=== PATIENT | female | born 2000 | race Caucasian/White ===

== ENCOUNTER 2019-09-08 16:45 | Emergency (ER) | payer OTHER ==
[2019-09-08 16:56] VITALS: RESP 20; TEMP 98.1
--- NOTE | 2019-09-08 17:25 | ED ---
Upper Extremity HPI - General Chief Complaint: Extremity Injury, Upper Stated Complaint: IHS - lt hand/wrist injury Time Seen by Provider: 09/08/19 17:01 Source: patient Mode of arrival: ambulatory Limitations: no limitations - History of Present Illness Initial Comments: Patient is a 19-year-old female presenting to the emergency Department with complaints of an injury to her left wrist. Patient states she was at work this morning when she hit her left wrist on the corner of a metal counter. She states she had pain and bruising to the area. She did go home and take Tylenol and ice the area but is still having discomfort. She denies any previous injuries or surgeries to her left wrist or left extremity. She has no other complaints at this time. Upon arrival to the ER, her vital signs are stable. - Related Data Home Medications Medication Instructions Recorded Confirmed No Known Home Medications 09/08/19 09/08/19 Allergies Allergy/AdvReac Type Severity Reaction Status Date / Time Penicillins Allergy Swelling Verified 09/08/19 17:54 Review of Systems ROS Statement: Those systems with pertinent positive or pertinent negative responses have been documented in the HPI. ROS Other: All systems not noted in ROS Statement are negative. Past Medical History Past Medical History: No Reported History History of Any Multi-Drug Resistant Organisms: None Reported Past Surgical History: No Surgical Hx Reported Past Psychological History: No Psychological Hx Reported Smoking Status: Never smoker Past Alcohol Use History: None Reported Past Drug Use History: None Reported General Exam - General Exam Comments Initial Comments: GENERAL: Well-appearing, well-nourished and in no acute distress. HEAD: Atraumatic, normocephalic. EYES: Pupils equal round and reactive to light, extraocular movements intact, sclera anicteric, conjunctiva are normal. ENT: Moist mucous membranes. NECK: Normal range of motion, supple without lymphadenopathy or JVD. LUNGS: Breath sounds clear to auscultation bilaterally and equal. No wheezes rales or rhonchi. HEART: Regular rate and rhythm without murmurs, rubs or gallops. ABDOMEN: Soft, nontender, normoactive bowel sounds. No guarding, no rebound. No masses appreciated. : Deferred EXTREMITIES: Patient has mild bruising to the base of the left thumb consistent with a contusion injury. She has no swelling of the left wrist or left forearm. She does have full range of motion of the left wrist with pain at the end range. She is neurovascular intact. There is no deformity seen. SKIN: Warm, Dry, normal turgor, no rashes or lesions noted. Limitations: no limitations Course Vital Signs 09/08/19 09/08/19 16:54 18:25 Temperature 98.1 F Pulse Rate 91 80 Respiratory 20 20 Rate Blood Pressure 156/83 140/96 O2 Sat by Pulse 99 99 Oximetry Medical Decision Making - Medical Decision Making Patient is a 19-year-old female presenting with a left wrist injury that she did at work today. X-rays reveal no acute fractures dislocations. Discussed with patient is most likely a contusion to the first metacarpal. She will continue to ice as well as take Tylenol as needed for pain. She is stable for discharge. Disposition Clinical Impression: Contusion of left wrist Disposition: HOME SELF-CARE Condition: Stable Instructions (If sedation given, give patient instructions): Wrist Injury (ED) Additional Instructions: Please return to the Emergency Department if symptoms worsen or any other concerns. Continue with ice, Tylenol or Motrin for discomfort. Is patient prescribed a controlled substance at d/c from ED?: No Referrals: None,Stated [Primary Care Provider] - 1-2 days
--- NOTE | 2019-09-08 17:50 | XR ---
EXAMINATION TYPE: XR wrist complete LT DATE OF EXAM: 09/08/2019 CLINICAL HISTORY: pain TECHNIQUE: 4 images of the left wrist are obtained. COMPARISON: None. FINDINGS: There is no acute fracture/dislocation evident. The joint spaces appear within normal adames its. The overlying soft tissue appears unremarkable. IMPRESSION: There is no acute fracture or dislocation seen. ICD 10 NO FRACTURE, INITIAL EVALUATION
[2019-09-08 18:26] VITALS: BP 140/96; PULSE 80
== END 2019-09-08 18:26 | disposition home or self-care (01) ==
LOC: EC 16:45
DX: S60.212A Contusion of left wrist, initial encounter (principal); Z88.0 Allergy status to penicillin; W22.8XXA Striking against or struck by other objects, initial encounter; Y92.69 Other specified industrial and construction area as the place of occurrence of the external cause; Y99.0 Civilian activity done for income or pay
CPT/HCPCS: 99283

== ENCOUNTER → 2019-09-16 | Outpatient (CLI) | payer OTHER ==
--- NOTE | 2019-09-16 09:54 | XR ---
EXAMINATION TYPE: XR wrist complete LT, XR hand complete LT DATE OF EXAM: 09/16/2019 CLINICAL HISTORY: Lateral pain after hitting injury. TECHNIQUE: Frontal, lateral and oblique images of the left hand and wrist are obtained. Additional f ourth scaphoid view left wrist. COMPARISON: None FINDINGS: There is no acute fracture/dislocation evident in the left wrist. The joint spaces in the left wrist appear within normal limits. The overlying soft tissue appears unremarkable. Images of the left hand show no acute fracture or dislocation. Joint spaces are preserved. Overlying soft tissue is unremarkable. IMPRESSION: There is no acute fracture or dislocation in the left hand or wrist.
== END | disposition home or self-care (01) ==
LOC: RADXRMAIN 09:05
PROVIDERS: ATTEND Emergency Medicine
DX: S60.222D Contusion of left hand, subsequent encounter (principal); S60.212D Contusion of left wrist, subsequent encounter

== ENCOUNTER 2020-06-28 18:39 | Emergency (ER) | payer OTHER ==
[2020-06-28 18:58] VITALS: RESP 18; TEMP 98.3
[2020-06-28] MEDS ORDERED: SODIUM CHLORIDE 0.9% 1,000 ML IV ONE (19:17)
[2020-06-28 19:40] LABS: Appearance,Urine Clear (Clear); Basophils # (A) 0.1 k/uL (0-0.2); Basophils % (A) 1 %; Bilirubin,Urine Negative (Negative); Blood,Urine Negative (Negative); Color,Urine Colorless; Eosinophils # (A) 0.1 k/uL (0-0.7); Eosinophils % (A) 1 %; Glucose,Urine (UA) Negative (Negative); HCT 44.5 % (34.0-46.0); HGB 15.6 gm/dL (11.4-16.0); Ketones,Urine Negative (Negative); Leukocyte Esterase,Urine Negative (Negative); Lymphocytes % (A) 23 %; MCH 30.9 pg (25.0-35.0); MCV 88.3 fL (80.0-100.0); Mean Platelet Volume 6.7; Monocytes # (A) 0.5 k/uL (0-1.0); Monocytes % (A) 6 %; Neutrophils % (A) 69 %; Nitrite,Urine Negative (Negative); Platelet Count 312 k/uL (150-450); Protein,Urine Negative (Negative); RBC 5.03 m/uL (3.80-5.40); RDW 12.9 % (11.5-15.5); Specific Gravity,Urine 1.007 (1.001-1.035); Urobilinogen,Urine <2.0 mg/dL (<2.0); WBC 8.8 k/uL (3.8-10.6)
--- NOTE | 2020-06-28 19:48 | ED ---
Abdominal Pain HPI - General Chief Complaint: Abdominal Pain Stated Complaint: possibly 6 weeks , cramping Time Seen by Provider: 06/28/20 19:05 Source: patient Mode of arrival: ambulatory Limitations: no limitations - History of Present Illness Initial Comments: 20 year-old female patient presents to the emergency department for evaluation of lower abdominal cramping. Patient did have a positive home test. Last period started on 05/14/20. She is . States cramping started a couple of days ago. She denies any abnormal vaginal bleeding or discharge. States she is having suprapubic cramping she does have some low back pain as well. Denies hematuria, dysuria, urinary frequency, urinary urgency. She states she has been having nausea but denies any vomiting. She does have an appointment with Dr. Blair in 2 weeks. Has not had any ultrasound or evaluation up to this point. Denies history of abdominal surgery. He denies constipation or diarrhea. Patient denies any recent rash, fever, chills, cough, shortness of breath, chest pain, numbness, tingling, dizziness, weakness, headache, visual changes, or any other complaints. - Related Data Home Medications Medication Instructions Recorded Confirmed Euk-Rvsp-Bcjsp Acid 1 cap PO DAILY 06/28/20 06/28/20 [-U Capsule (formulary)] Allergies Allergy/AdvReac Type Severity Reaction Status Date / Time Penicillins Allergy Swelling Verified 06/28/20 20:34 Review of Systems ROS Statement: Those systems with pertinent positive or pertinent negative responses have been documented in the HPI. ROS Other: All systems not noted in ROS Statement are negative. Past Medical History Past Medical History: No Reported History History of Any Multi-Drug Resistant Organisms: None Reported Past Surgical History: No Surgical Hx Reported Past Psychological History: No Psychological Hx Reported Smoking Status: Never smoker Past Alcohol Use History: None Reported Past Drug Use History: None Reported General Exam Limitations: no limitations General appearance: alert, in no apparent distress, other (This is a well- developed, well-nourished adult female patient in no acute distress. Vital signs upon presentation are temperature 98.3F, pulse 79, respirations 18, blood pressure 135/76, pulse ox 100% on room air.) Eye exam: Present: normal appearance, PERRL, EOMI. Absent: scleral icterus, conjunctival injection, periorbital swelling ENT exam: Present: normal exam, normal oropharynx, mucous membranes moist Respiratory exam: Present: normal lung sounds bilaterally. Absent: respiratory distress, wheezes, rales, rhonchi, stridor Cardiovascular Exam: Present: regular rate, normal rhythm, normal heart sounds. Absent: systolic murmur, diastolic murmur, rubs, gallop, clicks GI/Abdominal exam: Present: soft, tenderness (suprapubic tenderness), normal bowel sounds. Absent: distended, guarding, rebound, rigid Neurological exam: Present: alert, oriented X3, CN II-XII intact Psychiatric exam: Present: normal affect, normal mood Skin exam: Present: warm, dry, intact, normal color. Absent: rash Course Vital Signs 06/28/20 06/28/20 18:54 21:31 Temperature 98.3 F Pulse Rate 79 72 Respiratory 18 18 Rate Blood Pressure 135/76 129/75 O2 Sat by Pulse 100 98 Oximetry Medical Decision Making - Medical Decision Making 20-year-old female patient presents to the emergency department today for evaluation of suprapubic abdominal cramping and low back pain. Last period 6 weeks 4 days ago. Positive home test with a faint line on 06/08/20, darker line a few days later. Denies vaginal bleeding or discharge. Physical examination reveals mild suprapubic tenderness. Labs reviewed and did reveal hCG levels of 3900. Ultrasound obtained and showed a possible intrauterine gestational sac measuring 7 mm. No adnexal mass or abnormality noted. I did discuss findings and results with the patient. We did discuss possible early versus threatened miscarriage versus possibility of early ectopic . We discussed signs and symptoms of each. She is instructed to have repeat hCG level drawn in 2 days she is given a slip for this. She is instructed to call her BENEFITS CONSULTANT's office in the morning for further instructions. Return parameters were discussed in detail. She verbalizes understanding and agrees with this plan. - Lab Data Result diagrams: 06/28/20 19:30 06/28/20 19:30 Lab Results 06/28/20 06/28/20 06/28/20 Range/Units 19:20 19:30 19:30 WBC 8.8 (3.8-10.6) k/uL RBC 5.03 (3.80-5.40) m/uL Hgb 15.6 (11.4-16.0) gm/dL Hct 44.5 (34.0-46.0) % MCV 88.3 (80.0-100.0) fL MCH 30.9 (25.0-35.0) pg MCHC 35.0 (31.0-37.0) g/dL RDW 12.9 (11.5-15.5) % Plt Count 312 (150-450) k/uL MPV 6.7 Neutrophils % 69 % Lymphocytes % 23 % Monocytes % 6 % Eosinophils % 1 % Basophils % 1 % Neutrophils # 6.0 (1.3-7.7) k/uL Lymphocytes # 2.0 (1.0-4.8) k/uL Monocytes # 0.5 (0-1.0) k/uL Eosinophils # 0.1 (0-0.7) k/uL Basophils # 0.1 (0-0.2) k/uL Sodium (137-145) mmol/L Potassium (3.5-5.1) mmol/L Chloride (98-107) mmol/L Carbon Dioxide (22-30) mmol/L Anion Gap mmol/L BUN (7-17) mg/dL Creatinine (0.52-1.04) mg/dL Est GFR (CKD-EPI)AfAm (>60 ml/min/1.73 sqM) Est GFR (CKD-EPI)NonAf (>60 ml/min/1.73 sqM) Glucose (74-99) mg/dL Calcium (8.4-10.2) mg/dL Total Bilirubin (0.2-1.3) mg/dL AST (14-36) U/L ALT (4-34) U/L Alkaline Phosphatase (38-126) U/L Total Protein (6.3-8.2) g/dL Albumin (3.5-5.0) g/dL Lipase (23-300) U/L HCG, Quant mIU/mL Urine Color Colorless Urine Appearance Clear (Clear) Urine pH 7.0 (5.0-8.0) Ur Specific [place] 1.007 (1.001-1.035) Urine Protein Negative (Negative) Urine Glucose (UA) Negative (Negative) Urine Ketones Negative (Negative) Urine Blood Negative (Negative) Urine Nitrite Negative (Negative) Urine Bilirubin Negative (Negative) Urine Urobilinogen <2.0 (<2.0) mg/dL Ur Leukocyte Esterase Negative (Negative) Blood Type A Positive Blood Type Recheck No Previous Record Bld Type Recheck Status [facility] ONLY 06/28/20 Range/Units 19:30 WBC (3.8-10.6) k/uL RBC (3.80-5.40) m/uL Hgb (11.4-16.0) gm/dL Hct (34.0-46.0) % MCV (80.0-100.0) fL MCH (25.0-35.0) pg MCHC (31.0-37.0) g/dL RDW (11.5-15.5) % Plt Count (150-450) k/uL MPV Neutrophils % % Lymphocytes % % Monocytes % % Eosinophils % % Basophils % % Neutrophils # (1.3-7.7) k/uL Lymphocytes # (1.0-4.8) k/uL Monocytes # (0-1.0) k/uL Eosinophils # (0-0.7) k/uL Basophils # (0-0.2) k/uL Sodium 138 (137-145) mmol/L Potassium 3.9 (3.5-5.1) mmol/L Chloride 105 (98-107) mmol/L Carbon Dioxide 23 (22-30) mmol/L Anion Gap 10 mmol/L BUN 11 (7-17) mg/dL Creatinine 0.50 L (0.52-1.04) mg/dL Est GFR (CKD-EPI)AfAm >90 (>60 ml/min/1.73 sqM) Est GFR (CKD-EPI)NonAf >90 (>60 ml/min/1.73 sqM) Glucose 108 H (74-99) mg/dL Calcium 10.0 (8.4-10.2) mg/dL Total Bilirubin 0.4 (0.2-1.3) mg/dL AST 24 (14-36) U/L ALT 22 (4-34) U/L Alkaline Phosphatase 58 (38-126) U/L Total Protein 8.3 H (6.3-8.2) g/dL Albumin 4.8 (3.5-5.0) g/dL Lipase 60 (23-300) U/L HCG, Quant 3916.2 mIU/mL Urine Color Urine Appearance (Clear) Urine pH (5.0-8.0) Ur Specific [place] (1.001-1.035) Urine Protein (Negative) Urine Glucose (UA) (Negative) Urine Ketones (Negative) Urine Blood (Negative) Urine Nitrite (Negative) Urine Bilirubin (Negative) Urine Urobilinogen (<2.0) mg/dL Ur Leukocyte Esterase (Negative) Blood Type Blood Type Recheck Bld Type Recheck Status - Radiology Data Radiology results: report reviewed, image reviewed ultrasound was obtained. Report is reviewed in its entirety. Impression by Dr. Solis shows possible early intrauterine gestational sac measures 7 mm. No adnexal masses. Small amount of free fluid in the cul-de-sac. Disposition Clinical Impression: Abdominal pain in Disposition: HOME SELF-CARE Condition: Good Instructions (If sedation given, give patient instructions): Threatened Miscarriage (ED), Abdominal Pain in (ED) Additional Instructions: Have repeat hCG ( hormone) redrawn in 2 days, please have it redrawn at this hospital for comparison purposes. Call Dr. Blair's office first thing in the morning for further instructions. Return to the emergency department immediately if her pain worsens, he developed vaginal bleeding, or given any other concerns. Return for any other new, worsening, or concerning symptoms. Is patient prescribed a controlled substance at d/c from ED?: No Referrals: None,Stated [Primary Care Provider] - 1-2 days Time of Disposition: 21:19
[2020-06-28 19:50] LABS: ALT 22 U/L (4-34); AST 24 U/L (14-36); African American GFR (CKD) >90 (>60 ml/min/1.73 sqM); Albumin 4.8 g/dL (3.5-5.0); Alkaline Phosphatase 58 U/L (38-126); Anion Gap 10 mmol/L; Blood Urea Nitrogen 11 mg/dL (7-17); Carbon Dioxide 23 mmol/L (22-30); Chloride 105 mmol/L (98-107); Glucose 108 mg/dL (74-99); Lipase 60 U/L (23-300); Non-African American GFR(CKD) >90 (>60 ml/min/1.73 sqM); Potassium 3.9 mmol/L (3.5-5.1); Sodium 138 mmol/L (137-145); Total Bilirubin 0.4 mg/dL (0.2-1.3); Total Protein 8.3 g/dL (6.3-8.2)
[2020-06-28 20:06] LABS: HCG,Quantitative Serum 3916.2 mIU/mL
--- NOTE | 2020-06-28 20:44 | US ---
EXAMINATION TYPE: Transabdominal DATE OF EXAM: 06/28/2020 8:11 PM COMPARISON: NONE CLINICAL HISTORY: Suprapubic pain; 6 weeks pg. Suprapubic pain x 2 days. . EXAM PERFORMED: Transvaginal (TV) and Transabdominal (TA) EXAM MEASUREMENTS: GESTATIONAL AGE / DATING Physician Established: Not yet established. Dates by LMP: (6 weeks/4 days) EDC: 02/17/2021 Dates by First Scan: This is first scan. Dates by Current Scan for: Gestational sac measures out of range. MATERNAL ANATOMY Uterus: 8.0 x 5.5 x 4.9 cm. Retroverted. Cervix appears to be anteverted. Right Ovary: 3.8 x 2.6 x 2.5 cm. Anechoic area seen measuring 1.1 x 1.1 x 0.9 cm. Left Ovary: 4.2 x 2.0 x 2.6 cm. Appears slightly enlarged. Post CDS / Adnexa: Fluid seen in CDS measuring 1.4 x 1.9 x 0.3 cm. Presence of free fluid: Yes, in CDS. Presence of corpus luteal cyst: Possible within right ovary-Anechoic area seen measuring 1.1 x 1.1 x 0.9 cm.. Presence of subchorionic bleed: No GESTATION / SURVEY MSD: 0.73 cm. (OOR) IUP: Possible gestational sac only seen at this time. Date of LMP: 05/13/2020 Beta HcG (if available): 3,916.2 IMPRESSION: Possible early intrauterine gestational sac that measures 7 mm. No adnexal mass. Small amount of free fluid in the cul-de-sac.
[2020-06-28 21:32] VITALS: BP 129/75; PULSE 72
== END 2020-06-28 21:32 | disposition home or self-care (01) ==
LOC: EC 18:39
DX: O99.891 Other specified diseases and conditions complicating pregnancy (principal); R10.30 Lower abdominal pain, unspecified; M54.5 Low back pain; Z3A.01 Less than 8 weeks gestation of pregnancy; Z88.0 Allergy status to penicillin; Z79.899 Other long term (current) drug therapy
CPT/HCPCS: 36415; 76801; 76817; 80053; 81003; 83690; 84702; 85025; 86900; 86901; 96360; 96361; 99284

== ENCOUNTER → 2020-07-02 | Outpatient (CLI) | payer OTHER | END | disposition home or self-care (01) | LOC: LABWHC1 13:29 | PROVIDERS: ATTEND Obstetrics & Gynecology | DX: O20.0 Threatened abortion (principal) | CPT/HCPCS: 36415; 84702 ==

== ENCOUNTER 2020-07-03 19:21 | Emergency (ER) | payer OTHER ==
[2020-07-03 19:28] VITALS: RESP 18
[2020-07-03 20:37] LABS: Basophils % (A) 0 %; Eosinophils # (A) 0.1 k/uL (0-0.7); Eosinophils % (A) 1 %; HCT 45.1 % (34.0-46.0); HGB 15.9 gm/dL (11.4-16.0); Lymphocytes # (A) 2.4 k/uL (1.0-4.8); Lymphocytes % (A) 28 %; MCH 31.3 pg (25.0-35.0); MCHC 35.3 g/dL (31.0-37.0); MCV 88.6 fL (80.0-100.0); Mean Platelet Volume 6.6; Monocytes # (A) 0.5 k/uL (0-1.0); Monocytes % (A) 5 %; Neutrophils # (A) 5.7 k/uL (1.3-7.7); Neutrophils % (A) 65 %; Platelet Count 300 k/uL (150-450); RBC 5.09 m/uL (3.80-5.40); RDW 12.9 % (11.5-15.5); WBC 8.8 k/uL (3.8-10.6)
[2020-07-03 20:41] LABS: Appearance,Urine Clear (Clear); Bacteria,Urine Rare /hpf; Bilirubin,Urine Negative (Negative); Blood,Urine Trace (Negative); Color,Urine Yellow; Glucose,Urine (UA) Negative (Negative); Ketones,Urine Negative (Negative); Leukocyte Esterase,Urine Negative (Negative); Mucus,Urine Rare /hpf; Nitrite,Urine Negative (Negative); Protein,Urine Trace (Negative); RBC,Urine 2 /hpf (0-5); Specific Gravity,Urine 1.035 (1.001-1.035); Squamous Epithelial Cell,Urine 1 /hpf (0-4); WBC,Urine <1 /hpf (0-5)
[2020-07-03 20:46] LABS: ALT 28 U/L (4-34); AST 30 U/L (14-36); African American GFR (CKD) >90 (>60 ml/min/1.73 sqM); Albumin 4.7 g/dL (3.5-5.0); Alkaline Phosphatase 60 U/L (38-126); Anion Gap 11 mmol/L; Blood Urea Nitrogen 13 mg/dL (7-17); Calcium 9.7 mg/dL (8.4-10.2); Carbon Dioxide 23 mmol/L (22-30); Chloride 104 mmol/L (98-107); Glucose 107 mg/dL (74-99); Non-African American GFR(CKD) >90 (>60 ml/min/1.73 sqM); Sodium 138 mmol/L (137-145); Total Bilirubin 0.4 mg/dL (0.2-1.3); Total Protein 8.2 g/dL (6.3-8.2)
--- NOTE | 2020-07-03 21:00 | ED ---
Female Urogenital HPI - General Source: patient Mode of arrival: ambulatory Limitations: no limitations <Anjelica Carrillo - Last Filed: 07/03/20 20:59> <Shan Gaines - Last Filed: 07/03/20 21:29> - General Chief complaint: Vaginal Bleeding Stated complaint: Poss miscarriage - History of Present Illness Initial comments: 20-year-old female who is presents to the emergency department with reported vaginal bleeding. Patient was seen in the emergency department for vaginal cramping on June 28. She had multiple home tests which were positive. Last menstrual cycle was May 14 and she was approximately 6 weeks at that time. She has laboratory studies conducted which demonstrated that her beta Quant was 3916. Ultrasound demonstrated a possible early intrauterine gestational sac measuring 7 mm. Patient had repeat laboratory studies drawn on Thursday however this had to be done at [facility]. She reports that her beta Quant fell a small amount to 3900. She spoke with Dr. Lombardo who sent her to [facility] yesterday and it radha to 5655. She is supposed to see him in office tomorrow at 9 AM. The patient began having vaginal bleeding today which is something she never had before. Reports that she had increased cramping. She called her OB who recommended that she come in to the emergency room for evaluation. Denies any changes in her urination. No abnormal vaginal discharge or concern for sexually transmitted infections. No fevers or chills. States that she's been wearing the same pad all day. No other alleviating, precipitating or modifying factors (Anjelica Carrillo) - Related Data Home Medications Medication Instructions Recorded Confirmed Gto-Nmwn-Twszx Acid 1 cap PO DAILY 06/28/20 07/03/20 [-U Capsule (formulary)] Allergies Allergy/AdvReac Type Severity Reaction Status Date / Time Penicillins Allergy Swelling Verified 07/03/20 20:06 Review of Systems ROS Other: All systems not noted in ROS Statement are negative. <Anjelica Carrillo - Last Filed: 07/03/20 20:59> ROS Other: All systems not noted in ROS Statement are negative. <Shan Gaines - Last Filed: 07/03/20 21:29> ROS Statement: Those systems with pertinent positive or pertinent negative responses have been documented in the HPI. Past Medical History Past Medical History: No Reported History History of Any Multi-Drug Resistant Organisms: None Reported Past Surgical History: No Surgical Hx Reported Past Psychological History: No Psychological Hx Reported Smoking Status: Never smoker Past Alcohol Use History: None Reported Past Drug Use History: None Reported <Anjelica Carrillo - Last Filed: 07/03/20 20:59> General Exam Limitations: no limitations General appearance: alert, in no apparent distress Head exam: Present: atraumatic, normocephalic, normal inspection Eye exam: Present: normal appearance, PERRL, EOMI. Absent: scleral icterus, conjunctival injection, periorbital swelling ENT exam: Present: normal exam, mucous membranes moist Neck exam: Present: normal inspection. Absent: tenderness, meningismus, lymphadenopathy Respiratory exam: Present: normal lung sounds bilaterally. Absent: respiratory distress, wheezes, rales, rhonchi, stridor Cardiovascular Exam: Present: regular rate, normal rhythm, normal heart sounds. Absent: systolic murmur, diastolic murmur, rubs, gallop, clicks GI/Abdominal exam: Present: soft, normal bowel sounds. Absent: distended, tenderness, guarding, rebound, rigid Extremities exam: Present: normal inspection, full ROM, normal capillary refill. Absent: tenderness, pedal edema, joint swelling, calf tenderness Back exam: Present: normal inspection Neurological exam: Present: alert, oriented X3, CN II-XII intact Psychiatric exam: Present: normal affect, normal mood Skin exam: Present: warm, dry, intact, normal color. Absent: rash <EmileenderAnmolAnjelica A - Last Filed: 07/03/20 20:59> Course Vital Signs 07/03/20 19:25 Temperature 98.1 F Pulse Rate 77 Respiratory 18 Rate Blood Pressure 138/70 O2 Sat by Pulse 100 Oximetry Medical Decision Making - Lab Data Result diagrams: 07/03/20 20:22 07/03/20 20:22 <EmileenderAnjelica A - Last Filed: 07/03/20 20:59> - Lab Data Result diagrams: 07/03/20 20:22 07/03/20 20:22 <Shan Gaines - Last Filed: 07/03/20 21:29> - Medical Decision Making Upon arrival patient was placed into room 25. A thorough history and physical exam was performed. Patient has slight tenderness to the left lower quadrant. Recommend laboratory studies and ultrasound. Laboratory studies are pending at this time. Patient is a positive. US pending. Patient will be signed out to Dr. Gaines (Anjelica Carrillo) Patient care is signed out to me by previous shift physician Dr. French. Plan was to follow-up with ultrasound. Ultrasound shows possible intrauterine gestational sac. Follow-up is recommended 2 weeks also complex cyst in the right ovary. Patient notified of results. Patient discharged she is an appointment with OB tomorrow. (Shan Gaines) - Lab Data Lab Results 07/03/20 07/03/20 07/03/20 Range/Units 20:22 20:22 20:22 WBC 8.8 (3.8-10.6) k/uL RBC 5.09 (3.80-5.40) m/uL Hgb 15.9 (11.4-16.0) gm/dL Hct 45.1 (34.0-46.0) % MCV 88.6 (80.0-100.0) fL MCH 31.3 (25.0-35.0) pg MCHC 35.3 (31.0-37.0) g/dL RDW 12.9 (11.5-15.5) % Plt Count 300 (150-450) k/uL MPV 6.6 Neutrophils % 65 % Lymphocytes % 28 % Monocytes % 5 % Eosinophils % 1 % Basophils % 0 % Neutrophils # 5.7 (1.3-7.7) k/uL Lymphocytes # 2.4 (1.0-4.8) k/uL Monocytes # 0.5 (0-1.0) k/uL Eosinophils # 0.1 (0-0.7) k/uL Basophils # 0.0 (0-0.2) k/uL Sodium 138 (137-145) mmol/L Potassium 4.0 (3.5-5.1) mmol/L Chloride 104 (98-107) mmol/L Carbon Dioxide 23 (22-30) mmol/L Anion Gap 11 mmol/L BUN 13 (7-17) mg/dL Creatinine 0.48 L (0.52-1.04) mg/dL Est GFR (CKD-EPI)AfAm >90 (>60 ml/min/1.73 sqM) Est GFR (CKD-EPI)NonAf >90 (>60 ml/min/1.73 sqM) Glucose 107 H (74-99) mg/dL Calcium 9.7 (8.4-10.2) mg/dL Total Bilirubin 0.4 (0.2-1.3) mg/dL AST 30 (14-36) U/L ALT 28 (4-34) U/L Alkaline Phosphatase 60 (38-126) U/L Total Protein 8.2 (6.3-8.2) g/dL Albumin 4.7 (3.5-5.0) g/dL HCG, Quant 6182.5 mIU/mL Urine Color Yellow Urine Appearance Clear (Clear) Urine pH 6.0 (5.0-8.0) Ur Specific [place] 1.035 (1.001-1.035) Urine Protein Trace H (Negative) Urine Glucose (UA) Negative (Negative) Urine Ketones Negative (Negative) Urine Blood Trace H (Negative) Urine Nitrite Negative (Negative) Urine Bilirubin Negative (Negative) Urine Urobilinogen 2.0 (<2.0) mg/dL Ur Leukocyte Esterase Negative (Negative) Urine RBC 2 (0-5) /hpf Urine WBC <1 (0-5) /hpf Ur Squamous Epith Cells 1 (0-4) /hpf Urine Bacteria Rare H (None) /hpf Urine Mucus Rare H (None) /hpf Disposition <Anjelica Carrillo A - Last Filed: 07/03/20 20:59> Is patient prescribed a controlled substance at d/c from ED?: No Time of Disposition: 21:29 <Shan Gaines - Last Filed: 07/03/20 21:29> Clinical Impression: Pelvic pain Disposition: HOME SELF-CARE Instructions (If sedation given, give patient instructions): Threatened Miscarriage (ED) Referrals: Bryan Blair MD [STAFF PHYSICIAN] - 1-2 days
[2020-07-03 21:02] LABS: HCG,Quantitative Serum 6182.5 mIU/mL
--- NOTE | 2020-07-03 21:20 | US ---
EXAMINATION TYPE: Transabdominal DATE OF EXAM: 07/03/2020 9:07 PM COMPARISON: US CLINICAL HISTORY: , bleeding. Pain and bleeding x 4 hours. . EXAM PERFORMED: Transvaginal (TV) and Transabdominal (TA) EXAM MEASUREMENTS: GESTATIONAL AGE / DATING Physician Established: Not yet established. Dates by LMP: (7 weeks/2 days) EDC: 02/17/2021 Dates by First Scan: Measured OOR. Dates by Current Scan for: Possible gestational sac seen measures out of range. MATERNAL ANATOMY Uterus: Retroverted. 7.9 x 5.3 x 4.0 cm. Right Ovary: 2.9 x 2.3 x 2.5 cm. Hypoechoic/heterogeneous area with peripheral vascularity seen measu ring 1.2 x 1.1 x 1.1 cm. Anechoic area seen measuring 1.1 x 1.0 x 1.0 cm. Left Ovary: 3.6 x 1.8 x 2.0 cm. Post CDS / Adnexa: Minimal fluid seen in cul de sac measuring 0.8 x 0.9 x 0.4 cm. Presence of free fluid: yes, in cul de sac. Presence of corpus luteal cyst: Possible within right ovary as mentioned above: Hypoechoic/heterogene ous area with peripheral vascularity seen measuring 1.2 x 1.1 x 1.1 cm.. Presence of subchorionic bleed: Not seen. GESTATION / SURVEY MSD: 0.92 cm. (Measures out of range.) IUP: Possible gestational sac seen only at this time. Date of LMP: 05/13/2020 Beta HcG (if available): 6,182.5 IMPRESSION: Possible intrauterine early gestational sac. Follow-up exam recommended in 2 weeks to confirm a livin g fetus of clinically indicated. Complex cyst on the right ovary.
[2020-07-03 21:52] VITALS: BP 131/84; PULSE 99; TEMP 98.2
== END 2020-07-03 21:51 | disposition home or self-care (01) ==
LOC: EC 19:21
DX: R10.2 Pelvic and perineal pain (principal); Z88.0 Allergy status to penicillin
CPT/HCPCS: 36415; 76801; 76817; 80053; 81001; 84702; 85025; 99284

== ENCOUNTER → 2020-11-15 | Outpatient (CLI) | payer OTHER ==
--- NOTE | 2020-11-16 08:15 | US ---
EXAMINATION TYPE: Ultrasound OB <= 14 week fetus DATE OF EXAM: 11/15/2020 4:40 PM COMPARISON: NONE CLINICAL HISTORY: 20-year-old female Z36 Confirm dates. EXAM PERFORMED: Transabdominal (TA) FINDINGS: EXAM MEASUREMENTS: GESTATIONAL AGE / DATING Physician Established: (10 weeks/1 days) EDC: 06/12/2021 Dates by LMP: LMP unknown Dates by First Scan: No previous this is first scan Dates by Current Scan for: (10 weeks/4 days) EDC: 06/09/2021 MATERNAL ANATOMY Uterus: 12.2 x 5.4 x 8.3cm Right Ovary: 2.7 x 2.1 x 2.0cm Left Ovary: 3.2 x 1.7 x 2.7cm Post CDS / Adnexa: wnl Presence of free fluid: no Presence of corpus luteal cyst: not seen Presence of subchorionic bleed: no GESTATION / SURVEY CRL: 3.6cm (10 weeks/4 days) Yolk Sac (normal less than 6mm): not seen Heart Rate: 165 bpm Rhythm: Normal IUP: Viable IUP IMPRESSION: 1. Single live intrauterine with gestational size of 10 weeks 4 days by crown-rump length. This is concordant with physician established dates (10 weeks 1 day). 2. Complete survey recommended at 18-20 weeks.
== END | disposition home or self-care (01) ==
LOC: RADUSWWP 16:21
PROVIDERS: ATTEND Obstetrics & Gynecology
DX: Z34.91 Encounter for supervision of normal pregnancy, unspecified, first trimester (principal); Z3A.10 10 weeks gestation of pregnancy
CPT/HCPCS: 76801

== ENCOUNTER 2020-11-25 17:25 | Emergency (ER) | payer OTHER ==
[2020-11-25] MEDS ORDERED: ONDANSETRON 4 MG/2 ML VIAL IVP STA (17:41)
[2020-11-25] MEDS ORDERED: SODIUM CHLORIDE 0.9% 1,000 ML IV STA (17:41)
[2020-11-25 18:13] LABS: Basophils % (A) 0 %; Eosinophils # (A) 0.1 k/uL (0-0.7); Eosinophils % (A) 1 %; HCT 38.5 % (34.0-46.0); HGB 14.1 gm/dL (11.4-16.0); Hyperchromasia Slight; Lymphocytes % (A) 24 %; MCH 31.7 pg (25.0-35.0); MCHC 36.8 g/dL (31.0-37.0); MCV 86.2 fL (80.0-100.0); Mean Platelet Volume 6.9; Monocytes # (A) 0.4 k/uL (0-1.0); Monocytes % (A) 5 %; Neutrophils # (A) 5.8 k/uL (1.3-7.7); Neutrophils % (A) 69 %; Platelet Count 264 k/uL (150-450); RBC 4.46 m/uL (3.80-5.40); RDW 13.2 % (11.5-15.5); WBC 8.4 k/uL (3.8-10.6)
[2020-11-25 18:26] LABS: ALT 11 U/L (4-34); AST 18 U/L (14-36); African American GFR (CKD) >90 (>60 ml/min/1.73 sqM); Albumin 4.1 g/dL (3.5-5.0); Alkaline Phosphatase 65 U/L (38-126); Amylase 63 U/L (30-110); Anion Gap 10 mmol/L; Blood Urea Nitrogen 3 mg/dL (7-17); Calcium 9.1 mg/dL (8.4-10.2); Carbon Dioxide 18 mmol/L (22-30); Chloride 108 mmol/L (98-107); Glucose 91 mg/dL (74-99); Lipase 49 U/L (23-300); Non-African American GFR(CKD) >90 (>60 ml/min/1.73 sqM); Potassium 3.8 mmol/L (3.5-5.1); Sodium 136 mmol/L (137-145); Total Bilirubin 0.3 mg/dL (0.2-1.3); Total Protein 7.1 g/dL (6.3-8.2)
--- NOTE | 2020-11-25 18:38 | ED ---
General Adult HPI - General Chief complaint: Nausea/Vomiting/Diarrhea Stated complaint: , Dehydration Time Seen by Provider: 11/25/20 17:32 Source: patient, RN notes reviewed Mode of arrival: ambulatory Limitations: no limitations - History of Present Illness Initial comments: Patient is a 20-year-old female presents to emergency complaining of nausea for the past several weeks. She notes that she is 12 weeks and has been feeling ill since week 5. She notes that she doesn't drink nearly as much water she probably should patient was last 3 days she's felt more dehydrated and weak than usual. She denied any other issues or complaints. She noted that her has been uncomplicated so far and she follows up with her [facility]OT[facility] in a week and a half. She notes that she came in to get hydration therapy. She denied any chest pain shortness breath headache diarrhea constipation fever fatigue chills - Related Data Home Medications Medication Instructions Recorded Confirmed Ondansetron [Zofran] 4 mg PO Q6H PRN 11/25/20 11/25/20 Allergies Allergy/AdvReac Type Severity Reaction Status Date / Time Penicillins Allergy Swelling Verified 11/25/20 18:22 Review of Systems ROS Statement: Those systems with pertinent positive or pertinent negative responses have been documented in the HPI. ROS Other: All systems not noted in ROS Statement are negative. Past Medical History Past Medical History: No Reported History History of Any Multi-Drug Resistant Organisms: None Reported Past Surgical History: No Surgical Hx Reported Past Psychological History: No Psychological Hx Reported Smoking Status: Never smoker Past Alcohol Use History: None Reported Past Drug Use History: None Reported General Exam Limitations: no limitations General appearance: alert, in no apparent distress Head exam: Present: atraumatic, normocephalic, normal inspection Eye exam: Present: normal appearance, PERRL, EOMI. Absent: scleral icterus, conjunctival injection, periorbital swelling Neck exam: Present: normal inspection Respiratory exam: Present: normal lung sounds bilaterally. Absent: respiratory distress, wheezes, rales, rhonchi, stridor Cardiovascular Exam: Present: regular rate, normal rhythm, normal heart sounds. Absent: systolic murmur, diastolic murmur, rubs, gallop, clicks GI/Abdominal exam: Present: soft, normal bowel sounds. Absent: distended, tenderness, guarding, rebound, rigid Extremities exam: Present: normal inspection, full ROM, normal capillary refill. Absent: tenderness, pedal edema, joint swelling, calf tenderness Neurological exam: Present: alert, oriented X3 Psychiatric exam: Present: normal affect, normal mood Skin exam: Present: warm, dry, intact, normal color. Absent: rash Course Vital Signs 11/25/20 17:27 Temperature 98.2 F Pulse Rate 77 Respiratory 16 Rate Blood Pressure 133/82 O2 Sat by Pulse 100 Oximetry Medical Decision Making - Medical Decision Making 20-year-old female complaining of dehydration, she is 12 weeks . Basic labs, 4 mg Zofran, 1 L normal saline ordered. Upon reevaluation patient states that she feels better already since fluids were started. Labs unremarkable. Case discussed with Dr. Almanza, patient can discharge home with follow-up to [facility]. - Lab Data Result diagrams: 11/25/20 17:52 11/25/20 17:52 Lab Results 11/25/20 11/25/20 11/25/20 Range/Units 17:52 17:52 17:52 WBC 8.4 (3.8-10.6) k/uL RBC 4.46 (3.80-5.40) m/uL Hgb 14.1 (11.4-16.0) gm/dL Hct 38.5 (34.0-46.0) % MCV 86.2 (80.0-100.0) fL MCH 31.7 (25.0-35.0) pg MCHC 36.8 (31.0-37.0) g/dL RDW 13.2 (11.5-15.5) % Plt Count 264 (150-450) k/uL MPV 6.9 Neutrophils % 69 % Lymphocytes % 24 % Monocytes % 5 % Eosinophils % 1 % Basophils % 0 % Neutrophils # 5.8 (1.3-7.7) k/uL Lymphocytes # 2.0 (1.0-4.8) k/uL Monocytes # 0.4 (0-1.0) k/uL Eosinophils # 0.1 (0-0.7) k/uL Basophils # 0.0 (0-0.2) k/uL Hyperchromasia Slight Sodium 136 L (137-145) mmol/L Potassium 3.8 (3.5-5.1) mmol/L Chloride 108 H (98-107) mmol/L Carbon Dioxide 18 L (22-30) mmol/L Anion Gap 10 mmol/L BUN 3 L (7-17) mg/dL Creatinine 0.35 L (0.52-1.04) mg/dL Est GFR (CKD-EPI)AfAm >90 (>60 ml/min/1.73 sqM) Est GFR (CKD-EPI)NonAf >90 (>60 ml/min/1.73 sqM) Glucose 91 (74-99) mg/dL Calcium 9.1 (8.4-10.2) mg/dL Total Bilirubin 0.3 (0.2-1.3) mg/dL AST 18 (14-36) U/L ALT 11 (4-34) U/L Alkaline Phosphatase 65 (38-126) U/L Total Protein 7.1 (6.3-8.2) g/dL Albumin 4.1 (3.5-5.0) g/dL Amylase 63 (30-110) U/L Lipase 49 (23-300) U/L Urine Color Colorless Urine Appearance Clear (Clear) Urine pH 6.0 (5.0-8.0) Ur Specific Boutte 1.005 (1.001-1.035) Urine Protein Negative (Negative) Urine Glucose (UA) Negative (Negative) Urine Ketones Negative (Negative) Urine Blood Negative (Negative) Urine Nitrite Negative (Negative) Urine Bilirubin Negative (Negative) Urine Urobilinogen <2.0 (<2.0) mg/dL Ur Leukocyte Esterase Negative (Negative) Disposition Clinical Impression: Dehydration Disposition: HOME SELF-CARE Condition: Stable Instructions (If sedation given, give patient instructions): Acute Nausea and Vomiting (ED) Additional Instructions: Please return to the Emergency Department if symptoms worsen or any other concerns. Follow-up with [facility]ATIONS [facility] P[facility]NEL NEGOTI[facility] as planned. Into increase oral fluid intake. Is patient prescribed a controlled substance at d/c from ED?: No Referrals: None,Stated [Primary Care Provider] - 1-2 days Time of Disposition: 19:38
[2020-11-25 18:54] LABS: Appearance,Urine Clear (Clear); Bilirubin,Urine Negative (Negative); Blood,Urine Negative (Negative); Color,Urine Colorless; Glucose,Urine (UA) Negative (Negative); Ketones,Urine Negative (Negative); Leukocyte Esterase,Urine Negative (Negative); Nitrite,Urine Negative (Negative); Protein,Urine Negative (Negative); Specific Gravity,Urine 1.005 (1.001-1.035); Urobilinogen,Urine <2.0 mg/dL (<2.0)
[2020-11-25 19:50] VITALS: BP 125/82; PULSE 82; RESP 17; TEMP 98.4
== END 2020-11-25 19:50 | disposition home or self-care (01) ==
LOC: EC 17:25
DX: O99.281 Endocrine, nutritional and metabolic diseases complicating pregnancy, first trimester (principal); E86.0 Dehydration; O21.9 Vomiting of pregnancy, unspecified; O26.891 Other specified pregnancy related conditions, first trimester; R19.7 Diarrhea, unspecified; Z79.899 Other long term (current) drug therapy; Z3A.12 12 weeks gestation of pregnancy; Z88.0 Allergy status to penicillin
CPT/HCPCS: 36415; 80053; 82150; 83690; 85025; 81003; 99284; 96374; J2405

== ENCOUNTER 2021-03-04 16:53 | Outpatient (CLI) | payer BC, OTHER ==
[2021-03-04 17:44] LABS: Appearance,Urine Clear (Clear); Bacteria,Urine Few /hpf; Bilirubin,Urine Negative (Negative); Blood,Urine Negative (Negative); Color,Urine Light Yellow; Glucose,Urine (UA) Negative (Negative); Ketones,Urine Negative (Negative); Leukocyte Esterase,Urine Moderate (Negative); Mucus,Urine Rare /hpf; Nitrite,Urine Negative (Negative); PH, Urine 7.5 (5.0-8.0); Protein,Urine Negative (Negative); RBC,Urine 1 /hpf (0-5); Specific Gravity,Urine 1.004 (1.001-1.035); Squamous Epithelial Cell,Urine 3 /hpf (0-4); Urobilinogen,Urine <2.0 mg/dL (<2.0); WBC,Urine 2 /hpf (0-5)
[2021-03-04 17:49] LABS: Basophils % (A) 0 %; Eosinophils # (A) 0.1 k/uL (0-0.7); Eosinophils % (A) 1 %; HCT 33.8 % (34.0-46.0); HGB 11.8 gm/dL (11.4-16.0); Hyperchromasia Slight; Lymphocytes # (A) 1.8 k/uL (1.0-4.8); Lymphocytes % (A) 17 %; MCH 32.5 pg (25.0-35.0); MCV 92.9 fL (80.0-100.0); Mean Platelet Volume 7.4; Monocytes # (A) 0.5 k/uL (0-1.0); Monocytes % (A) 5 %; Neutrophils # (A) 8.1 k/uL (1.3-7.7); Neutrophils % (A) 76 %; Platelet Count 239 k/uL (150-450); Poikilocytosis Slight; RBC 3.64 m/uL (3.80-5.40); RDW 13.8 % (11.5-15.5); WBC 10.7 k/uL (3.8-10.6)
[2021-03-04 17:51] LABS: Creatinine,Urine Random 20.4 mg/dL; Creatinine,Urine Random 21.4 mg/dL; Protein/Creatinine Ratio,Urine 0.735
[2021-03-04 17:59] LABS: ALT 12 U/L (4-34); AST 18 U/L (14-36); African American GFR (CKD) >90 (>60 ml/min/1.73 sqM); Blood Urea Nitrogen 4 mg/dL (7-17); LDH 453 U/L (313-618); Non-African American GFR(CKD) >90 (>60 ml/min/1.73 sqM); Uric Acid 3.9 mg/dL (3.7-7.4)
[2021-03-04] MEDS ORDERED: BETAMET ACET-BETAMETH SOD PHOS 6 MG/ML MDV IM SCH (18:15)
[2021-03-04] MEDS ORDERED: LACTATED RINGERS 1,000 ML IV SCH (18:15)
[2021-03-04] MEDS ORDERED: MAGNESIUM SULFATE-WATER PMX 4 GM in WATER FOR INJECTION 1 100ML.BAG IVPB ONE (18:30)
--- NOTE | 2021-03-04 18:33 | P.HPOB ---
History of Present Illness H&P Date: 03/04/21 Chief Complaint: Headache, swelling and elevated blood pressures This patient is a pleasant 21-year-old 2 para 0 female estimated date of confinement 06/12/2021 estimated gestational age 25-5/7 weeks' who presents to labor and delivery with complaints of 1-2 days of increased lower extremity swelling, headaches and she checks her blood pressure at home and it was e levated. Blood pressures similar with elevated here to 141/89-164/85. Patient's had no problems with the exception of some nausea and vomiting the first trimester. Laboratory evaluation shows normal liver tests and uric acid however her protein creatinine ratio was elevated 0.735. heart tones are reassuring for gestational age. I did contact Dr. Holt and discussed her clinical situation and he felt was best to treat her with magnesium sulfate, Celestone and transfer to a tertiary facility for closer observation in the event she is developing severe preeclampsia. Review of Systems Constitutional: Reports as per HPI Ears, nose, mouth and throat: Reports headache Genitourinary: Reports Menstruation: Reports amenorrhea Musculoskeletal: bilateral: foot swelling Past Medical History Past Medical History: No Reported History History of Any Multi-Drug Resistant Organisms: None Reported Past Surgical History: No Surgical Hx Reported Smoking Status: Never smoker Medications and Allergies Home Medications Medication Instructions Recorded Confirmed Type Doxylamine Succinate [Unisom] 25 mg PO DAILY 03/04/21 03/04/21 History Pnv No.95/Ferrous Fum/Folic AC 1 each PO DAILY 03/04/21 03/04/21 History [ Multivitamin Tablet] Pyridoxine [Vitamin B-6] 50 mg PO DAILY 03/04/21 03/04/21 History Allergies Allergy/AdvReac Type Severity Reaction Status Date / Time Penicillins Allergy Swelling Verified 03/04/21 17:02 Exam Intake and Output 03/04/21 03/04/21 03/04/21 06:59 14:59 22:59 Other: Weight 78.925 kg - OBG Physical Exam Abdomen: bowel sounds normal, no diffuse tenderness, no bruit present, no guarding noted, no hepatomegaly, no splenomegaly, no mass Uterus: enlarged Results blood work shows she is A positive, rubella immune, hepatitis B ne gative, RPR is nonreactive, ultrasound has shown normal anatomy. Result Diagrams: 03/04/21 17:40 03/04/21 17:40 Abnormal Lab Results - Last 24 Hours (Table) 03/04/21 03/04/21 03/04/21 Range/Units 17:13 17:13 17:40 WBC 10.7 H (3.8-10.6) k/uL RBC 3.64 L (3.80-5.40) m/uL Hct 33.8 L (34.0-46.0) % Neutrophils # 8.1 H (1.3-7.7) k/uL BUN (7-17) mg/dL Creatinine (0.52-1.04) mg/dL Ur Leukocyte Esterase Moderate H (Negative) Urine Bacteria Few H (None) /hpf Urine Mucus Rare H (None) /hpf U Random Total Protein 16 H (<12) mg/dL 03/04/21 Range/Units 17:40 WBC (3.8-10.6) k/uL RBC (3.80-5.40) m/uL Hct (34.0-46.0) % Neutrophils # (1.3-7.7) k/uL BUN 4 L (7-17) mg/dL Creatinine 0.43 L (0.52-1.04) mg/dL Ur Leukocyte Esterase (Negative) Urine Bacteria (None) /hpf Urine Mucus (None) /hpf U Random Total Protein (<12) mg/dL Assessment and Plan Assessment: This is a pleasant 21-year-old 2 para 0 female 25-5/7 weeks' gestation with significant blood pressure elevations, headache and lower extremity edema with an elevated PC ratio. In consultation with maternal- medicine they recommended treating with magnesium sulfate, Celestone, and transfer to another facility for further evaluation. I explained to the patient this may be early preeclampsia versus evolving significant gestational hypertension. At this point there is no evidence of maternal compromise however we will transfer her to maternal- medicine for evaluation. (1) 25 to 26 weeks gestation of Current Visit: Yes Status: Acute Code(s): ISM1950 - SNOMED Code(s): 759157864 (2) Hypertension affecting in second trimester Current Visit: Yes Status: Acute Code(s): O16.2 - UNSPECIFIED MATERNAL HYPERTENSION, SECOND TRIMESTER SNOMED Code(s): 73545515782837
--- NOTE | 2021-03-04 18:48 | P.DS ---
Providers Expected date of discharge: 03/04/21 Attending physician: Bryan Blair Primary care physician: Stated None - Discharge Diagnosis(es) (1) 25 to 26 weeks gestation of Current Visit: Yes Status: Acute (2) Hypertension affecting in second trimester Current Visit: Yes Status: Acute Hospital Course: Please see dictated H&P for intimate details patient's admission. Brief summary this pleasant 21-year-old 2 para 0 female 25-5/7 weeks gestation admitted to labor and delivery with complaints of headaches, swelling, elevated blood pressures. Serial blood pressures here confirmed elevated blood pressures and lab work shows elevated PC ratio. I contacted maternal- medicine and they recommended treatment and transfer to their facility this was done. Patient Condition at Discharge: Stable Plan - Discharge Summary New Discharge Prescriptions: No Action Doxylamine Succinate [Unisom] 25 mg PO DAILY Pyridoxine [Vitamin B-6] 50 mg PO DAILY Pnv No.95/Ferrous Fum/Folic AC [ Multivitamin Tablet] 1 each PO DAILY Discharge Medication List Doxylamine Succinate [Unisom] 25 mg PO DAILY 03/04/21 [History] Pnv No.95/Ferrous Fum/Folic AC [ Multivitamin Tablet] 1 each PO DAILY 03/04/21 [History] Pyridoxine [Vitamin B-6] 50 mg PO DAILY 03/04/21 [History] Discharge Disposition: OTHER INSTITUTION NOT DEFINED
[2021-03-04] MEDS ORDERED: MAGNESIUM SULFATE-WATER PMX 20 GM in WATER FOR INJECTION 1 500ML.BAG IV SCH (18:50)
[2021-03-04 18:59] VITALS: RESP 16; TEMP 98.8
[2021-03-04 19:26] VITALS: BP 148/75; PULSE 126
--- NOTE | 2021-03-05 06:58 | P.MSEPDOC ---
Presenting Problems - Arrival Data Date of Arrival on Unit: 03/04/21 Time of Arrival on Unit: 16:53 Mode of Transport: Ambulatory - Complaint OB-Reason for Admission/Chief Complaint: Other Comment: edema, SALGUERO Medical History - Information : 2 Para: 0 Term: 0 : 0 Abortions: Spontaneous or Elective: 0 Number of Living Children: 0 - Gestational Age Gestational Age by EMMANUEL (wks/days): 25 Weeks and 5 Days Review of Systems - Review of Systems Constitutional: No problems Breast: No problems ENT: No problems Cardiovascular: No problems Respiratory: No problems Gastrointestinal: No problems Genitourinary: No problems Musculoskeletal: No problems Neurological: No problems Skin: No problems Vital Signs - Temperature Temperature: 98.8 F Temperature Source: Temporal Artery Scan - Pulse Pulse Oximetery Pulse Rate: 126 Pulse Assessment Method: Automatic Cuff - Respirations Respiratory Rate: 16 Oxygen Delivery Method: Room Air - Blood Pressure Right Arm Blood Pressure: 148/75 Blood Pressure Mean: 99 Blood Pressure Source: Automatic Cuff Medical Screen Scoring - Assessment - Baby A Baseline FHR: 135 Heart Rate - NICHD Category: Category I (Normal) NST: Reactive Physician Notification - Physician Notified Physician Notified Date: 03/04/21 Physician Notified Time: 17:27 Physician: Bryan Blair New Order Received: Yes - Notification Comment Comment: Dr. Blair on unit, report given on maternal and status, complaints of. hand swelling today, SALGUERO on and off for a couple of days, and nausea. Pt has brisk. reflexes but no visual changes, clonus, or epigastric pain. BPs 141/89 and 156/89. Orders to send [facility] labs. Maternal Triage Index - Maternal Triage Index Presenting for scheduled procedure w/no complaint: No - Stat/Priority 1 Stat Priority 1: No - Urgent/Priority 2 Urgent Priority 2: Yes Provider Notified: Bryan Blair Provider Notified Time: 17:27 Criteria Met for Priority 2: 25 5/7wks, edema, SALGUERO, BP 141/89, 156/89 Disposition - Disposition OB Disposition: Transfer to other dept./facility Transferred to:: [facility] Discharge Date: 03/04/21 Discharge Time: 19:39 I agree with the RN Medical Screening Exam: Yes Case reviewed; plan agreed upon as documented in EMR&OBIX.: Yes Diagnosis: GESTATNL HTN W/O SIGNIFICANT PROTEINURIA, SECOND TRIMESTER (Please see dictated admission history and physical and transfer note. Patient is transferred to a tertiary facility for evaluation of hypertension.)
== END 2021-03-04 19:39 | disposition other institution (70) ==
LOC: FBPOP 16:53
PROVIDERS: ATTEND Obstetrics & Gynecology
DX: O10.912 Unspecified pre-existing hypertension complicating pregnancy, second trimester (principal); O26.892 Other specified pregnancy related conditions, second trimester; O21.2 Late vomiting of pregnancy; R51.9 Headache, unspecified; Z3A.26 26 weeks gestation of pregnancy; Z88.0 Allergy status to penicillin
CPT/HCPCS: 99215; 96365; 96372; 82570; 84156; 82565; 83615; 84450; 84460; 84520; 84550; 85025; 81001; J3475 ×2; J0702

== ENCOUNTER 2021-05-10 23:15 | Outpatient (CLI) | payer OTHER ==
[2021-05-10 23:28] LABS: Glucose,Whole Blood 92 mg/dL (75-99)
[2021-05-11 00:54] VITALS: BP 136/101; PULSE 104; RESP 16; TEMP 97
--- NOTE | 2021-05-23 07:17 | P.MSEPDOC ---
Presenting Problems - Arrival Data Date of Arrival on Unit: 05/10/21 Time of Arrival on Unit: 23:15 Mode of Transport: Ambulatory - Complaint OB-Reason for Admission/Chief Complaint: Possible Onset of Labor Comment: pt. present to triage due to contractions that started yestruday and have been intermitted throughout today, pt. states they have been getting stronger since 4pm today when she arrived at work, rating pain 4/10, pt. sees MFM in [place] due to GDM, andpreeclamsia, pt. takes metformin and labetolol. Medical History - Information : 2 Para: 0 Term: 0 : 0 Abortions: Spontaneous or Elective: 0 Number of Living Children: 0 - Gestational Age Gestational Age by EMMANUEL (wks/days): 35 Weeks and 3 Days - History Complications: Preeclampsia, GDM Comment: pt. follows MFM due to preeclamsia and GDM, pt. takes labetolol 100mg BID and metformin daily Review of Systems - Review of Systems Constitutional: No problems Breast: No problems ENT: No problems Cardiovascular: No problems Respiratory: No problems Gastrointestinal: No problems Genitourinary: No problems Musculoskeletal: No problems Neurological: No problems Skin: No problems Vital Signs - Temperature Temperature: 97.0 F Temperature Source: Temporal Artery Scan - Pulse Pulse Oximetery Pulse Rate: 104 Pulse Assessment Method: Automatic Cuff - Respirations Respiratory Rate: 16 Oxygen Delivery Method: Room Air O2 Sat by Pulse Oximetry: 100 - Blood Pressure Right Arm Blood Pressure: 136/101 Blood Pressure Mean: 112 Blood Pressure Source: Automatic Cuff - Comment Vital Signs Comment: BP improved, 142/83 pulse 86 Medical Screen Scoring - Cervical Exam Dilation (cm): 0 Membranes: Intact - Uterine Contractions Frequency From (mins): 2 Frequency To (mins): 8 Duration From (seconds): 20 Duration To (seconds): 80 Intensity: Mild Resting: Soft to palpation - Assessment - Baby A Baseline FHR: 130 Heart Rate - NICHD Category: Category I (Normal) NST: Reactive Physician Notification - Physician Notified Physician Notified Date: 05/10/21 Physician Notified Time: 23:37 Physician: Leny Abbott New Order Received: Yes - Notification Comment Comment: discharge patient if no change in 1 hour, no cervical change after 1 hr. Maternal Triage Index - Maternal Triage Index Presenting for scheduled procedure w/no complaint: No - Stat/Priority 1 Stat Priority 1: No - Urgent/Priority 2 Urgent Priority 2: No - Prompt/Priority 3 Prompt Priority 3: Yes Criteria Met for Priority 3: pt. present to triage due to contractions that started yestruday and have been intermitted throughout today, pt. states they have been getting stronger since 4pm today. when she arrived at work, rating pain 4/10, pt. sees MFM in [place] due to GDM, and preeclamsia, pt. takes metformin and labetolol. labetolol taken tonight at 1999. no cervical change after 1 hr Disposition - Disposition OB Disposition: Discharge to home Discharge Date: 05/11/21 Discharge Time: 00:38 I agree with the RN Medical Screening Exam: Yes Case reviewed; plan agreed upon as documented in EMR&OBIX.: Yes Diagnosis: FALSE LABOR BEFORE 37 COMPLETED WEEKS OF GEST, UNSP TRI
== END 2021-05-11 00:38 | disposition home or self-care (01) ==
LOC: FBPOP 23:15
PROVIDERS: ATTEND Obstetrics & Gynecology
DX: O47.03 False labor before 37 completed weeks of gestation, third trimester (principal); O24.415 Gestational diabetes mellitus in pregnancy, controlled by oral hypoglycemic drugs; Z3A.35 35 weeks gestation of pregnancy; Z88.0 Allergy status to penicillin
CPT/HCPCS: 59025; G0463; 99213

== ENCOUNTER 2021-05-23 15:40 | Inpatient (IN) | payer BC, OTHER ==
[2021-05-23] MEDS ORDERED: DINOPROSTONE 10 MG INSERT.ER VAGINAL ONE (16:14)
[2021-05-23] MEDS ORDERED: BUTORPHANOL 1 MG/ML 1 ML VIAL IV PRN (16:14)
--- NOTE | 2021-05-23 17:19 | P.HPOB ---
History of Present Illness H&P Date: 05/23/21 Chief Complaint: Induction of labor for gestational hypertension This patient is a pleasant 21-year-old 2 para 0 female estimated date of confinement 06/12/2021 estimated gestational age 37 and 2/7 weeks gestation who is admitted to labor and delivery for induction of labor secondary to gestational hypertension. Patient's history is such that she was transferred to maternal- medicine at 27 weeks with severe hypertension. Patient that time was admitted for almost a week and placed on oral hypertensives and then given steroids. Patient's been followed by myself and maternal- medicine twice a week sense that time. She's had weekly preeclampsia labs which have been normal. Recommendations per maternal medicine is to proceed with delivery at 37 weeks. Patient initially was scheduled for Cervidil because she was not dilated early this week but is now 2 cm dilated. She is now admitted for delivery in the morning. is also complicated by gestational diabetes without medications. This was under the management of maternal- medicine. Review of Systems Genitourinary: Reports Menstruation: Reports amenorrhea Past Medical History Past Medical History: No Reported History Additional Past Medical History / Comment(s): gestational hypertension History of Any Multi-Drug Resistant Organisms: None Reported Past Surgical History: No Surgical Hx Reported Past Anesthesia/Blood Transfusion Reactions: No Reported Reaction Past Psychological History: No Psychological Hx Reported Smoking Status: Never smoker Past Alcohol Use History: None Reported Past Drug Use History: None Reported - Past Family History Father Family Medical History: Hypertension Medications and Allergies Home Medications Medication Instructions Recorded Confirmed Type Pnv No.95/Ferrous Fum/Folic AC 1 each PO DAILY 03/04/21 05/23/21 History [ Multivitamin Tablet] Aspirin 81 mg PO ONCE 05/10/21 05/23/21 History Ferrous Sulfate Drops [Rohan-in-Thao] 65 mg PO ONCE 05/10/21 05/23/21 History Labetalol [Trandate] 100 mg PO ONCE 05/10/21 05/23/21 History metFORMIN HCL 500 mg PO ONCE 05/10/21 05/23/21 History Allergies Allergy/AdvReac Type Severity Reaction Status Date / Time Penicillins Allergy Rash/Hives Verified 05/23/21 16:12 Exam Vital Signs Temp Pulse Resp BP Pulse Ox 05/23/21 16:26 98.0 F 91 17 142/86 98 Intake and Output 05/23/21 05/23/21 05/23/21 06:59 14:59 22:59 Other: Weight 85.729 kg - OBG Physical Exam Abdomen: bowel sounds normal, no diffuse tenderness, no bruit present, no guarding noted, no hepatomegaly, no splenomegaly, no mass Vulva: both: normal Vagina: normal moisture, no discharge Cervix: no lesion (cervix is 2 cm dilated 50% effaced and thick.), no discharge Uterus: enlarged (fundal height 38 cm) Results blood work shows she is A positive, rubella immune, RPR nonreactive, hepatitis B negative, Glucola was 136 with elevated second and third hours gtt., group B strep was negative, most recent ultrasound showed estimated weight at 6 lbs. 3 oz. Patient received Celestone at 25 weeks. Assessment and Plan Assessment: This is a pleasant 21-year-old 2 para 0 female 37-2/7 weeks gestation admitted to labor and delivery for delivery secondary to gestational hypertension. Although the patient initially was admitted for Cervidil placement, her cervix is now favorable. However, she does have some elevated blood pressures therefore will be admitted and observed until induction begins. Patient I discussed induction process and we anticipate vaginal delivery. (1) 37 weeks gestation of Current Visit: Yes Status: Acute Code(s): Z3A.37 - 37 WEEKS GESTATION OF SNOMED Code(s): 10006064 (2) Gestational hypertension Current Visit: Yes Status: Acute Code(s): O13.9 - GESTATIONAL HTN W/O SIGNIFICANT PROTEINURIA, UNSP TRIMESTER SNOMED Code(s): 25100450 (3) Gestational diabetes mellitus (GDM) Current Visit: Yes Status: Acute Code(s): O24.419 - GESTATIONAL DIABETES MELLITUS IN , UNSP CONTROL SNOMED Code(s): 77796068
[2021-05-23 21:06] LABS: Glucose,Whole Blood 93 mg/dL (75-99)
[2021-05-24] MEDS: LABETALOL 100 MG TAB PO SCH ×2 (02:41→08:34)
[2021-05-24] MEDS ORDERED: OXYTOCIN 30 UNITS/500 ML NS 30 UNIT in SALINE 1 500ML.BAG IV SCH ×2 (05:12→19:45)
[2021-05-24] MEDS ORDERED: CARBOPROST TROMETHAMINE 250 MCG/ML 1 ML AMP IM PRN (05:12)
[2021-05-24] MEDS ORDERED: OXYTOCIN 10 UNIT/ML 1 ML VIAL IM PRN (05:12)
[2021-05-24] MEDS ORDERED: TERBUTALINE 1 MG/ML VIAL SQ PRN (05:12)
[2021-05-24] MEDS ORDERED: METHYLERGONOVINE 0.2 MG/ML 1 ML AMP IM PRN (05:12)
[2021-05-24] MEDS ORDERED: LIDOCAINE 0.5% (PF) 5 MG/ML (50 ML SDV) SQ PRN (05:12)
[2021-05-24] MEDS: LACTATED RINGERS 1,000 ML IV SCH ×3 (05:33→15:06)
[2021-05-24 05:39] LABS: Glucose,Whole Blood 84 mg/dL (75-99)
[2021-05-24 05:50] LABS: Basophils % (A) 0 %; Eosinophils # (A) 0.1 k/uL (0-0.7); Eosinophils % (A) 1 %; HCT 37.3 % (34.0-46.0); HGB 12.6 gm/dL (11.4-16.0); Lymphocytes % (A) 23 %; MCH 32.9 pg (25.0-35.0); MCHC 33.7 g/dL (31.0-37.0); MCV 97.8 fL (80.0-100.0); Mean Platelet Volume 8.5; Monocytes # (A) 0.4 k/uL (0-1.0); Monocytes % (A) 5 %; Neutrophils # (A) 5.9 k/uL (1.3-7.7); Neutrophils % (A) 69 %; Platelet Count 254 k/uL (150-450); Poikilocytosis Slight; RBC 3.81 m/uL (3.80-5.40); RDW 14.4 % (11.5-15.5); WBC 8.5 k/uL (3.8-10.6)
[2021-05-24 06:06] LABS: Albumin 3.6 g/dL (3.5-5.0); Bilirubin, Delta 0.7 mg/dL (0.0-0.2); Bilirubin,Unconjugated 0.2 mg/dL (0.0-1.1); Total Bilirubin 0.9 mg/dL (0.2-1.3); Total Protein 6.7 g/dL (6.3-8.2); Uric Acid 6.3 mg/dL (3.7-7.4)
[2021-05-24 06:21] LABS: INR 0.8 (<1.2); Partial Thromboplastin Time 22.1 sec (22.0-30.0); Prothrombin Time 9.4 sec (9.0-12.0)
[2021-05-24] MEDS ORDERED: ROPIVACAINE 100 MG, fentaNYL (PF). 200 MCG in SODIUM CHLORIDE 0.9% 76 ML EPIDURAL ONE (12:43)
[2021-05-24] MEDS ORDERED: HYDROCORTISONE 2.5% RECTAL CREAM 30 GM TUBE RECTAL PRN (19:45)
[2021-05-24] MEDS ORDERED: SIMETHICONE 80 MG CHEWABLE PO PRN (19:45)
[2021-05-24] MEDS ORDERED: diphenhydrAMINE 25 MG CAP PO PRN (19:45)
[2021-05-24] MEDS ORDERED: ZOLPIDEM 5 MG TAB PO PRN (19:45)
[2021-05-24] MEDS ORDERED: diphenhydrAMINE 50 MG/ML 1 ML VIAL IVP PRN (19:45)
[2021-05-24] MEDS ORDERED: bisacodyL 10 MG SUPP RECTAL PRN (19:45)
[2021-05-24] MEDS ORDERED: LANOLIN CREAM 5 GM TUBE TOPICAL PRN (19:45)
[2021-05-24] MEDS ORDERED: BENZOCAINE/MENTHOL SPRAY 1 GM/SPRAY AEROSOL TOPICAL PRN (19:45)
[2021-05-24] MEDS ORDERED: ACETAMINOPHEN TAB 325 MG TAB PO PRN (19:45)
--- NOTE | 2021-05-24 20:03 | P.PROBDLV ---
Vaginal Delivery Note - . Vaginal Delivery Note: Normal vaginal delivery viable female Apgars 9 and 10 delivery time is 1938 hrs. Please see dictated H&P for intimate details of this patient's admission. In brief summary this is a pleasant 21-year-old 2 para 0 female 37-2/7 weeks gestation admitted to labor and delivery for induction of labor secondary to gestational hypertension. Patient is admitted she is 2 cm dilated has artificial rupture membranes for clear fluid. Patient's labor is induced with Pitocin per protocol. Patient's labor does progress and she does get an epidural for pain control. Patient gets to complete and pushes approximately 1 hour and 10 minutes. She pushes the head to the perineum and the posterior perineum is supported. We have controlled delivery of the infant's head over the intact perineum. Mouth and nares are bulb suctioned. The infant's head is straight occiput anterior presentation. There is a loose nuchal cord which is easily reduced. The anterior shoulder then spontaneously delivers followed by the rest of this infant's body. This is a vigorous viable female Apgars are 9 and 10 delivery time is 1938 hrs. After delivery of the the is late on the mother's abdomen and after the cortisone pulsating is doubly clamped and cut. The placenta is then spontaneously delivered intact. Estimated blood loss is 150 mL. Inspection of the perineum shows second-degree laceration and there is also a right vaginal laceration. These are both repaired with 3-0 Vicryl in the usual fashion excellent reapproximation is noted. With this done all counts are correct 3. There are no complications. and mother stable delivery room.
[2021-05-24] MEDS: SENNOSIDES-DOCUSATE SODIUM 1 EACH TAB PO SCH (20:47)
[2021-05-24] MEDS ORDERED: LABETALOL 100 MG TAB PO SCH (21:00)
[2021-05-24] MEDS: IBUPROFEN 600 MG TAB PO PRN (22:08)
[2021-05-25] MEDS: IBUPROFEN 600 MG TAB PO PRN ×3 (04:43→22:13)
[2021-05-25 05:17] LABS: Basophils % (A) 0 %; Eosinophils # (A) 0.1 k/uL (0-0.7); Eosinophils % (A) 1 %; HCT 34.6 % (34.0-46.0); Lymphocytes # (A) 1.9 k/uL (1.0-4.8); Lymphocytes % (A) 13 %; MCH 33.7 pg (25.0-35.0); MCHC 34.8 g/dL (31.0-37.0); MCV 96.8 fL (80.0-100.0); Mean Platelet Volume 8.3; Monocytes # (A) 0.6 k/uL (0-1.0); Monocytes % (A) 4 %; Neutrophils # (A) 12.1 k/uL (1.3-7.7); Neutrophils % (A) 82 %; Platelet Count 222 k/uL (150-450); RBC 3.57 m/uL (3.80-5.40); RDW 14.2 % (11.5-15.5); WBC 14.8 k/uL (3.8-10.6)
[2021-05-25 05:29] LABS: Albumin 2.9 g/dL (3.5-5.0); Bilirubin, Delta 0.1 mg/dL (0.0-0.2); Bilirubin,Unconjugated 0.1 mg/dL (0.0-1.1); Total Bilirubin 0.2 mg/dL (0.2-1.3); Total Protein 5.6 g/dL (6.3-8.2)
--- NOTE | 2021-05-25 07:11 | P.PNOBGVD ---
Subjective - Subjective Patient reports: Reports appetite normal, Reports voiding normally, Reports pain well controlled, Reports ambulating normally : doing well Objective - Latest Vital Signs Latest vital signs: Vital Signs Temp Pulse Resp BP Pulse Ox 05/25/21 04:15 98.0 F 99 16 146/96 97 05/25/21 00:33 97.7 F 118 H 16 147/98 97 05/24/21 21:43 115 H 16 142/82 05/24/21 21:13 127 H 16 135/69 05/24/21 20:43 130 H 16 149/81 05/24/21 20:28 126 H 16 149/81 05/24/21 20:13 120 H 16 137/80 05/24/21 19:58 98.1 F 128 H 16 144/82 98 05/24/21 19:43 137 H 16 150/87 97 Intake and Output 05/24/21 05/25/21 05/25/21 22:59 06:59 14:59 Intake Total 167 333 Output Total 300 Balance -133 333 Intake: Intake, IV Titration 167 333 Amount Oxytocin 30 Units/500 ml 167 333 Ns 30 unit In Saline 1 500ml.bag @ Per Protocol IV .Q0M [facility] Rx#:[id number] Output: Estimated Blood Loss 300 Other: # Voids 1 1 - Exam Lungs: bilateral: normal Chest: Normal S1, Normal S2 Extremities: Present: normal Abdomen: Present: normal appearance, soft Uterus: Present: normal, firm - Labs Labs: Abnormal Lab Results - Last 24 Hours (Table) 05/25/21 05/25/21 Range/Units 04:55 04:55 WBC 14.8 H (3.8-10.6) k/uL RBC 3.57 L (3.80-5.40) m/uL Neutrophils # 12.1 H (1.3-7.7) k/uL Total Protein 5.6 L (6.3-8.2) g/dL Albumin 2.9 L (3.5-5.0) g/dL Assessment and Plan Assessment: day #1. Patient is resting without complaints. Vital signs are stable however her diastolic blood pressure is consistently over 90. Uterus is firm nontender she's having normal lochia. She had a mild elevation of one of her liver tests yesterday however repeat today is normal. Plan today is to increase her labetalol to 200 twice a day. Continue routine postoperative care. (1) 37 weeks gestation of Current Visit: Yes Status: Acute Code(s): Z3A.37 - 37 WEEKS GESTATION OF SNOMED Code(s): 97193464 (2) Gestational hypertension Current Visit: Yes Status: Acute Code(s): O13.9 - GESTATIONAL HTN W/O SIGNIFICANT PROTEINURIA, UNSP TRIMESTER SNOMED Code(s): 74534864 (3) Gestational diabetes mellitus (GDM) Current Visit: Yes Status: Acute Code(s): O24.419 - GESTATIONAL DIABETES MELLITUS IN , UNSP CONTROL SNOMED Code(s): 81727453
[2021-05-25] MEDS: SENNOSIDES-DOCUSATE SODIUM 1 EACH TAB PO SCH ×2 (07:36→19:48)
[2021-05-25] MEDS: LABETALOL 200 MG TAB PO SCH ×2 (07:36→19:49)
[2021-05-25 18:49] VITALS: RESP 16
[2021-05-26] MEDS: IBUPROFEN 600 MG TAB PO PRN (06:28)
--- NOTE | 2021-05-26 06:35 | P.PNOBGVD ---
Subjective - Subjective Patient reports: Reports appetite normal, Reports voiding normally, Reports pain well controlled, Reports ambulating normally : doing well Objective - Latest Vital Signs Latest vital signs: Vital Signs Temp Pulse Resp BP BP Pulse Ox 05/26/21 04:00 136/92 05/26/21 00:10 97.5 F L 99 16 138/87 99 05/25/21 20:00 97.7 F 89 16 154/96 98 05/25/21 18:00 151/91 131/87 05/25/21 16:00 97.3 F L 94 16 153/98 149/93 97 05/25/21 09:30 139/93 05/25/21 08:00 97.7 F 80 18 155/100 98 Intake and Output 05/25/21 05/25/21 05/26/21 14:59 22:59 06:59 Other: # Voids 3 2 2 - Exam Lungs: bilateral: normal Chest: Normal S1, Normal S2 Extremities: Present: normal Abdomen: Present: normal appearance, soft Uterus: Present: normal, firm Assessment and Plan Assessment: Post day #2. Patient is resting without complaints and wishes to go home. Vital signs are stable she is afebrile. She did have 1 elevated blood pr essure mildly 150s over 90s however the rest has been better. Patient is on labetalol 200 mg by mouth twice a day now. She is having normal lochia and ambulating and urinating without difficulty. My impression is that this is a normal course. She does have gestational hypertension. This appears to be controlled well on labetalol 200 twice a day. Repeat labs yesterday showed normal liver tests. For these reasons, I believe she is stable to go home follow up with me in 10 days for blood pressure check. She also checks her blood pressure at home. Plan today is to continue routine care and discharge home later this morning (1) 37 weeks gestation of Current Visit: Yes Status: Acute Code(s): Z3A.37 - 37 WEEKS GESTATION OF SNOMED Code(s): 39262202 (2) Gestational hypertension Current Visit: Yes Status: Acute Code(s): O13.9 - GESTATIONAL HTN W/O SIGNIFICANT PROTEINURIA, UNSP TRIMESTER SNOMED Code(s): 01535692 (3) Gestational diabetes mellitus (GDM) Current Visit: Yes Status: Acute Code(s): O24.419 - GESTATIONAL DIABETES MELLITUS IN , UNSP CONTROL SNOMED Code(s): 92695211
--- NOTE | 2021-05-26 06:41 | P.DS ---
Providers Date of admission: 05/23/21 15:40 Expected date of discharge: 05/26/21 Attending physician: Bryan Blair Primary care physician: Stated None - Discharge Diagnosis(es) (1) 37 weeks gestation of Current Visit: Yes Status: Acute (2) Gestational hypertension Current Visit: Yes Status: Acute (3) Gestational diabetes mellitus (GDM) Current Visit: Yes Status: Acute Hospital Course: Please see dictated H&P for intimate details of this patient's admission. Brief summary this is a pleasant 21-year-old 2 para 0 female 37-2/7 weeks gestation admitted to labor and delivery for induction secondary to gestational hypertension. Patient has induction of labor goes on to have a vaginal delivery viable female . Please see dictated delivery note. Of note patient did have elevated blood pressures throughout her admission however these were controlled with labetalol. Initial blood work did show an elevated LDH and liver test elevated however this did go down to normal after delivery. Patient was increased to labetalol 200 mg by mouth twice a day throughout admission. On day #2 patient's felt to be stable for discharge home on the oral labetalol follow up with nm short-term for repeat blood pressure check. Procedures: Induction of labor and normal vaginal delivery. Patient Condition at Discharge: Good Plan - Discharge Summary New Discharge Prescriptions: New Ibuprofen [Motrin] 600 mg PO Q6HR PRN #30 tab PRN Reason: Pain Labetalol [Trandate] 200 mg PO BID 30 Days #60 tab No Action metFORMIN HCL 500 mg PO ONCE Aspirin 81 mg PO ONCE Labetalol [Trandate] 100 mg PO ONCE Ferrous Sulfate Drops [Rohan-in-Thao] 65 mg PO ONCE Pnv No.95/Ferrous Fum/Folic AC [ Multivitamin Tablet] 1 each PO DAILY Discharge Medication List Pnv No.95/Ferrous Fum/Folic AC [ Multivitamin Tablet] 1 each PO DAILY 03/04/21 [History] Aspirin 81 mg PO ONCE 05/10/21 [History] Ferrous Sulfate Drops [Rohan-in-Thao] 65 mg PO ONCE 05/10/21 [History] Labetalol [Trandate] 100 mg PO ONCE 05/10/21 [History] metFORMIN HCL 500 mg PO ONCE 05/10/21 [History] Ibuprofen [Motrin] 600 mg PO Q6HR PRN #30 tab 12/19/21 [Rx] Labetalol [Trandate] 200 mg PO BID 30 Days #60 tab 05/26/21 [Rx] Follow up Appointment(s)/Referral(s): Bryan Blair MD [STAFF PHYSICIAN] - 07/04/21 11:15 am (Please see me in approximately week and a half for blood pressure check in the office as instructed.) Patient Instructions/Handouts: Vaginal Delivery (DC), Hypertension During (DC) Activity/Diet/Wound Care/Special Instructions: No intercourse or anything per vagina for 6 weeks. Please call if any fever, chills, excessive vaginal bleeding, and/or abdominal pain Discharge Disposition: HOME SELF-CARE
[2021-05-26] MEDS: SENNOSIDES-DOCUSATE SODIUM 1 EACH TAB PO SCH (07:45)
[2021-05-26] MEDS: LABETALOL 200 MG TAB PO SCH (07:45)
[2021-05-26 08:24] VITALS: PULSE 88; TEMP 97.8
[2021-05-26 09:24] VITALS: BP 126/80
== END 2021-05-26 11:15 | disposition home or self-care (01) | DRG 807 ==
LOC: 4FBP 15:40
PROVIDERS: ADMIT Obstetrics & Gynecology; ATTEND Obstetrics & Gynecology
PROC: 10E0XZZ Delivery of Products of Conception, External Approach (ICD-10-PCS; principal; 2021-05-24)
PROC: 0KQM0ZZ Repair Perineum Muscle, Open Approach (ICD-10-PCS; 2021-05-24)
PROC: 3E033VJ Introduction of Other Hormone into Peripheral Vein, Percutaneous Approach (ICD-10-PCS; 2021-05-24)
PROC: 3E0P7VZ Introduction of Hormone into Female Reproductive, Via Natural or Artificial Opening (ICD-10-PCS; 2021-05-24)
PROC: 10907ZC Drainage of Amniotic Fluid, Therapeutic from Products of Conception, Via Natural or Artificial Opening (ICD-10-PCS; 2021-05-24)
DX: O13.4 Gestational [pregnancy-induced] hypertension without significant proteinuria, complicating childbirth (principal); Z37.0 Single live birth; O69.81X0 Labor and delivery complicated by cord around neck, without compression, not applicable or unspecified; O70.1 Second degree perineal laceration during delivery; O24.425 Gestational diabetes mellitus in childbirth, controlled by oral hypoglycemic drugs; Z3A.37 37 weeks gestation of pregnancy; Z88.0 Allergy status to penicillin
CPT/HCPCS: 80076; 83036; 83615; 84550; 85025; 85610; 85730; 86850; 86900; 86901

== ENCOUNTER → 2021-08-06 | Outpatient (CLI) | payer OTHER | END | disposition home or self-care (01) | LOC: LABWHC1 09:28 | PROVIDERS: ATTEND Obstetrics & Gynecology | DX: N91.2 Amenorrhea, unspecified (principal) | CPT/HCPCS: 36415; 84702 ==

== ENCOUNTER 2023-03-14 12:23 | Emergency (ER) | payer OTHER, MEDICAID ==
[2023-03-14] MEDS ORDERED: LIDOCAINE 5% PATCH TOPICAL ONE (13:16)
--- NOTE | 2023-03-14 13:29 | XR ---
EXAMINATION TYPE: XR lumbar spine 2 or 3V DATE OF EXAM: 03/14/2023 1:25 PM CLINICAL INDICATION:Female, 23 years old with history of Injury; COMPARISON: None TECHNIQUE: XR lumbar spine 2 or 3V - Frontal, lateral and coned in L5-S1 lateral views of the spine. FINDINGS: No evidence of any acute osseous pathology. No evidence of loss of vertebral body height i s seen. There is normal alignment of the lumbar vertebral bodies. No significant degeneration changes throughout the spine. IMPRESSION: 1. No acute fracture. 2., multilevel disc degeneration.
--- NOTE | 2023-03-14 13:42 | ED ---
Back Pain HPI - General Chief Complaint: Back Pain/Injury Stated Complaint: [facility]/back injury Time Seen by Provider: 03/14/23 13:05 Source: patient, RN notes reviewed Mode of arrival: ambulatory Limitations: no limitations - History of Present Illness Initial Comments: This is a 23-year-old female who presents to the emergency department for lower back pain. Patient was moving a patient at [facility], and he was not holding his own weight, forcing her to hold all of his weight, and states that she felt a pop in her back in the process. She tried taking ibuprofen at home with no substantial relief in symptoms. Denies any loss of bowel/bladder control or saddle anesthesia. States that the pain stays in the center of the lower back and has not moved. She is still able to walk and move around. Denies any fevers, chills, sore throat, cough, dyspnea, chest pain, palpitations, abdominal pain, nausea, vomiting, diarrhea, or headaches. - Related Data Home Medications Medication Instructions Recorded Confirmed Pnv No.95/Ferrous Fum/Folic AC 1 each PO DAILY 03/04/21 05/23/21 [ Multivitamin Tablet] Aspirin 81 mg PO ONCE 05/10/21 05/23/21 Ferrous Sulfate Drops [Rohan-in-Thao] 65 mg PO ONCE 05/10/21 05/23/21 Labetalol [Trandate] 100 mg PO ONCE 05/10/21 05/23/21 metFORMIN HCL 500 mg PO ONCE 05/10/21 05/23/21 Previous Rx's Medication Instructions Recorded Ibuprofen [Motrin] 600 mg PO Q6HR PRN #30 tab 05/26/21 Labetalol [Trandate] 200 mg PO BID 30 Days #60 tab 05/26/21 Allergies Allergy/AdvReac Type Severity Reaction Status Date / Time Penicillins Allergy Rash/Hives Verified 03/14/23 12:34 Review of Systems ROS Statement: Those systems with pertinent positive or pertinent negative responses have been documented in the HPI. ROS Other: All systems not noted in ROS Statement are negative. Past Medical History Past Medical History: No Reported History History of Any Multi-Drug Resistant Organisms: None Reported Past Surgical History: No Surgical Hx Reported Past Psychological History: No Psychological Hx Reported Smoking Status: Never smoker Past Alcohol Use History: None Reported Past Drug Use History: None Reported General Exam Limitations: no limitations General appearance: alert, in no apparent distress Head exam: Present: atraumatic, normocephalic, normal inspection Respiratory exam: Present: normal lung sounds bilaterally. Absent: respiratory distress, wheezes, rales, rhonchi, stridor Cardiovascular Exam: Present: regular rate, normal rhythm, normal heart sounds. Absent: systolic murmur, diastolic murmur, rubs, gallop, clicks Neurological exam: Present: alert, oriented X3, CN II-XII intact Psychiatric exam: Present: normal affect, normal mood Skin exam: Present: warm, dry, intact, normal color. Absent: rash Course Vital Signs 03/14/23 03/14/23 12:32 14:01 Temperature 98.2 F 98.3 F Pulse Rate 94 78 Respiratory 20 18 Rate Blood Pressure 139/80 128/78 O2 Sat by Pulse 99 99 Oximetry Medical Decision Making - Medical Decision Making This is a 23 year old female who presents to the emergency department for lower back pain. Was pt. sent in by a medical professional or institution? @ -[facility] Did you speak to anyone other than the patient for history? @ -No Did you review nursing and triage notes? @ -Yes, and I agree, it is accurate with regards to the patient's symptoms. Were old charts reviewed? @ -No Differential Diagnosis? @ -Differential Back Pain: Strain, zoster, cauda equina syndrome, epidural abscess, vertebral osteomyelitis, discitis, fracture, subluxation, disc herniation, DJD, spinal stenosis, dissection, AAA, pancreatitis, peptic ulcer disease, pyelonephritis, kidney stone, this is not meant to be an all-inclusive list. EKG interpreted by me (3pts min.)? @ -Not obtained X-rays interpreted by me (1pt min.)? @ -X-ray of the lumbar spine obtained. My interpretation identifies no acute fractures. CT interpreted by me (1pt min.)? @ -Not obtained U/S interpreted by me (1pt. min.)? @ -Not obtained What testing was considered but not performed? (CT, X-rays, U/S, labs)? Why? @ -None What meds were considered but not given? Why? @ -None Did you discuss the management of the patient with other professionals? @ -No Did you reconcile home meds? @ -No Was smoking cessation discussed for >3mins.? @ -No Was critical care preformed (if so, how long)? @ -No Were there social determinants of health that impacted care today? How? (Homelessness, low income, unemployed, alcoholism, drug addiction, transportation, low edu. Level, literacy, decrease access to med. care, snf, rehab)? @ -No Was there de-escalation of care discussed even if they declined? (Discuss DNR or withdrawal of care, Hospice)? @ -No What co-morbidities impacted this encounter? (DM, HTN, Smoking, COPD, CAD, Cancer, CVA, Hep., AIDS, mental health diagnosis, sleep apnea, morbid obesity)? @ -None Was patient admitted / discharged? @ -Discharged. X-ray of the lumbar spine obtained revealing no acute process. Lidocaine patch was applied. Patient declined any oral analgesics. Advised ibuprofen and Tylenol as needed for pain relief, applying ice for 15-20 minutes every 2-3 hours for the first 2-3 days followed by heat there afterwards. Undiagnosed new problem with uncertain prognosis? @ -None Drug Therapy requiring intensive monitoring for toxicity (Heparin, Nitro, Insulin, Cardizem)? @ -None Were any procedures done? @ -None Diagnosis/symptom? @ -Lumbar strain Acute, or Chronic, or Acute on Chronic? @ -Acute Uncomplicated (without systemic symptoms) or Complicated (systemic symptoms)? @ -Uncomplicated Side effects of treatment? @ -None Exacerbation, Progression, or Severe Exacerbation] @ -Not applicable Poses a threat to life or bodily function? @ -No Return precautions reviewed in depth, the patient is instructed to return to the emergency department with any new, worsening, or concerning symptoms. Patient verbalized understanding. This case was discussed in detail with the attending ED physician, Dr. Galeano. Presentation, findings, and treatment plan discussed in detail as well. - Radiology Data Radiology results: report reviewed, image reviewed Disposition Clinical Impression: Strain of lumbar region Disposition: HOME SELF-CARE Instructions (If sedation given, give patient instructions): Acute Low Back Pain (ED) Additional Instructions: Return to the emergency department with any new, worsening, or concerning symptoms. Alternate with ibuprofen and Tylenol as needed for pain relief. You can also apply ice for 15-20 minutes every 2-3 hours for the first 2-3 days, followed by heat there afterwards. Follow up with your primary care provider in 1-2 days. Is patient prescribed a controlled substance at d/c from ED?: No Referrals: Jessica Yoo DO [Primary Care Provider] - 1-2 days
[2023-03-14 14:08] VITALS: BP 128/78; PULSE 78; RESP 18; TEMP 98.3
== END 2023-03-14 14:01 | disposition home or self-care (01) ==
LOC: EC 12:23
DX: S39.012A Strain of muscle, fascia and tendon of lower back, initial encounter (principal); M51.36 Other intervertebral disc degeneration, lumbar region; Z79.82 Long term (current) use of aspirin; Z88.0 Allergy status to penicillin; X50.0XXA Overexertion from strenuous movement or load, initial encounter
CPT/HCPCS: 72100; 99283

== ENCOUNTER → 2024-02-12 | Outpatient (CLI) | payer MEDICAID, OTHER ==
--- NOTE | 2024-03-29 02:56 | EM ---
EVENT MONITOR This is a 14-day event monitor. All available rhythm strips were reviewed. Predominant rhythm appears to be sinus with several short runs of paroxysmal atrial tachycardia. The patient had 1 episode when she felt that heart was racing and this was on 02/14/2024 at 11:00 p.m. She was in atrial tachycardia that had about 10 beats or so at a rate of 200 beats per minute. All other rhythm strips reveal pretty much sinus rhythm. There is some baseline artifact. There is also evidence of sinus tachycardia noted. No evidence of any ventricular ectopy or any significant bradycardia. FINAL IMPRESSION: Available rhythm strips suggest 1 episode of PSVT at 200 beats per minute from which the patient was symptomatic. The rest of the strips reveal sinus mechanism and sinus tachycardia. MMODL / IJN: [id number] /
== END | disposition home or self-care (01) ==
LOC: RADECHMAIN 07:16
PROVIDERS: ATTEND Family Medicine
DX: R00.2 Palpitations
CPT/HCPCS: 93270

== ENCOUNTER 2024-04-15 09:12 | Emergency (ER) | payer MEDICAID, OTHER ==
[2024-04-15 09:27] VITALS: RESP 16
--- NOTE | 2024-04-15 09:54 | ED ---
Allergic Reaction HPI - General Chief complaint: Allergic Reaction Stated complaint: allergic reaction Time Seen by Provider: 04/15/24 09:41 Source: patient, RN notes reviewed Mode of arrival: ambulatory Limitations: no limitations - History of Present Illness Initial Comments: 24 year old female presents to the ED with chief complaint of allergic reaction. She states that about 2 weeks ago she developed a URI which she was being treated for with Bactrim and Prednisone, she states the she started developing a rash so her provider switched her antibiotic to Z-pack. Yesterday, her rash worsened, spreading to her shoulders, neck, arms, and chest. She also reports tingling in her lips and throat. She denies difficulty breathing or swallowing, chest pain, and palpitations. - Related Data Home Medications Medication Instructions Recorded Confirmed Pnv No.95/Ferrous Fum/Folic AC 1 each PO DAILY 03/04/21 05/23/21 [ Multivitamin Tablet] Aspirin 81 mg PO ONCE 05/10/21 05/23/21 Ferrous Sulfate Drops [Rohan-in-Thao] 65 mg PO ONCE 05/10/21 05/23/21 Labetalol [Trandate] 100 mg PO ONCE 05/10/21 05/23/21 metFORMIN HCL 500 mg PO ONCE 05/10/21 05/23/21 Previous Rx's Medication Instructions Recorded Ibuprofen [Motrin] 600 mg PO Q6HR PRN #30 tab 05/26/21 Labetalol [Trandate] 200 mg PO BID 30 Days #60 tab 05/26/21 Allergies Allergy/AdvReac Type Severity Reaction Status Date / Time Penicillins Allergy Rash/Hives Verified 04/15/24 09:27 Review of Systems ROS Statement: Those systems with pertinent positive or pertinent negative responses have been documented in the HPI. ROS Other: All systems not noted in ROS Statement are negative. Past Medical History Past Medical History: No Reported History History of Any Multi-Drug Resistant Organisms: None Reported Past Surgical History: No Surgical Hx Reported Past Psychological History: Anxiety Smoking Status: Never smoker Past Alcohol Use History: None Reported Past Drug Use History: None Reported General Exam Limitations: no limitations General appearance: alert, in no apparent distress Head exam: Present: atraumatic, normocephalic, normal inspection Eye exam: Present: normal appearance, PERRL, EOMI. Absent: scleral icterus, conjunctival injection, periorbital swelling ENT exam: Present: normal exam, mucous membranes moist Neck exam: Present: normal inspection. Absent: tenderness, meningismus, lymphadenopathy Respiratory exam: Present: normal lung sounds bilaterally. Absent: respiratory distress, wheezes, rales, rhonchi, stridor Cardiovascular Exam: Present: regular rate, normal rhythm, normal heart sounds. Absent: systolic murmur, diastolic murmur, rubs, gallop, clicks GI/Abdominal exam: Present: soft, normal bowel sounds. Absent: distended, tenderness, guarding, rebound, rigid Extremities exam: Present: normal inspection, full ROM, normal capillary refill. Absent: tenderness, pedal edema, joint swelling, calf tenderness Back exam: Present: normal inspection Neurological exam: Present: alert, oriented X3, CN II-XII intact Psychiatric exam: Present: normal affect, normal mood Skin exam: Present: intact, erythema, urticaria. Absent: rash Course Vital Signs 04/15/24 04/15/24 09:24 10:48 Temperature 98.0 F 98.4 F Pulse Rate 104 H 99 Respiratory 16 16 Rate Blood Pressure 132/84 129/86 O2 Sat by Pulse 98 100 Oximetry Medical Decision Making - Medical Decision Making Was pt. sent in by a medical professional or institution (, PA, [employer], urgent care, hospital, or retirement...) When possible be specific @ -No Did you speak to anyone other than the patient for history (EMS, parent, family, police, friend...)? What history was obtained from this source @ -No Did you review nursing and triage notes (agree or disagree)? Why? @ -I reviewed and agree with nursing and triage notes Were old charts reviewed (outside hosp., previous admission, EMS record, old EKG, old radiological studies, urgent care reports/EKG's, retirement records)? Report findings @ -No old charts were reviewed Differential Diagnosis (chest pain, altered mental status, abdominal pain women, abdominal pain men, vaginal bleeding, weakness, fever, dyspnea, syncope, headache, dizziness, GI bleed, back pain, seizure, CVA, palpatations, mental health, musculoskeletal)? @ -Allergic reaction, drug eruption EKG interpreted by me (3pts min.). @ -None X-rays interpreted by me (1pt min.). @ -None done CT interpreted by me (1pt min.). @ -None done U/S interpreted by me (1pt. min.). @ -None done What testing was considered but not performed or refused? (CT, X-rays, U/S, labs)? Why? @ -None What meds were considered but not given or refused? Why? @ -None Did you discuss the management of the patient with other professionals (professionals i.e. Dr., PA, [employer], lab, RT, psych nurse, aids social worker, clam bed worker, teacher, senior vice president and chief information officer, rn case management)? Give summary @ -No Was smoking cessation discussed for >3mins.? @ -No Was critical care preformed (if so, how long)? @ -No Were there social determinants of health that impacted care today? How? (Homelessness, low income, unemployed, alcoholism, drug addiction, transportation, low edu. Level, literacy, decrease access to med. care, retirement, rehab)? @ -No Was there de-escalation of care discussed even if they declined (Discuss DNR or withdrawal of care, Hospice)? DNR status @ -No What co-morbidities impacted this encounter? (DM, HTN, Smoking, COPD, CAD, Cancer, CVA, ARF, Chemo, Hep., AIDS, mental health diagnosis, sleep apnea, morbid obesity)? @ -None Was patient admitted / discharged? Hospital course, mention meds given and route, prescriptions, significant lab abnormalities, going to OR and other pertinent info. @ -Discharge patient presented for allergic reaction patient has reaction to Bactrim. Patient will continue antihistamines patient advised this may take several days to resolve. Patient discharged in stable condition patient no signs distress. Undiagnosed new problem with uncertain prognosis? @ -No Drug Therapy requiring intensive monitoring for toxicity (Heparin, Nitro, Insulin, Cardizem)? @ -No Were any procedures done? @ -No Diagnosis/symptom? @ -Bactrim reaction Acute, or Chronic, or Acute on Chronic? @ -Acute Uncomplicated (without systemic symptoms) or Complicated (systemic symptoms)? @ -Uncomplicated Side effects of treatment? @ -No Exacerbation, Progression, or Severe Exacerbation? @ -No Poses a threat to life or bodily function? How? (Chest pain, [place], [place], pneumonia, PE, COPD, DKA, ARF, appy, cholecystitis, CVA, Diverticulitis, Homicidal, Suicidal, threat to staff... and all critical care pts) @ -No Disposition Clinical Impression: Allergic reaction, Allergy to Bactrim Disposition: HOME SELF-CARE Condition: Stable Additional Instructions: Please return to the Emergency Department if symptoms worsen or any other concerns. Is patient prescribed a controlled substance at d/c from ED?: No Referrals: Didier Olivares MD [Primary Care Provider] - 1-2 days Time of Disposition: 10:37
[2024-04-15] MEDS: predniSONE 50 MG TAB PO STA (10:45)
[2024-04-15] MEDS: diphenhydrAMINE 50 MG CAP PO STA (10:45)
[2024-04-15 10:50] VITALS: BP 129/86; PULSE 99; TEMP 98.4
== END 2024-04-15 10:56 | disposition home or self-care (01) ==
LOC: EC 09:12
DX: T78.40XA Allergy, unspecified, initial encounter (principal); Z88.0 Allergy status to penicillin; Z88.8 Allergy status to other drugs, medicaments and biological substances
CPT/HCPCS: 99283; J7512

== ENCOUNTER 2024-05-08 17:05 | Emergency (ER) | payer MEDICAID, OTHER ==
[2024-05-08 17:14] VITALS: BP 172/94; PULSE 77; RESP 18; TEMP 98.6
[2024-05-08 23:00] LABS: Hepatitis B Surface Antigen Nonreactive (Nonreactive); Hepatitis C IgG Antibody Nonreactive (Nonreactive)
[2024-05-08 23:04] LABS: Hepatitis B Surface AB- Quant 3.5 mIU/mL
[2024-05-09 16:40] LABS: HIV 2 AB Non-Reactive (Non-Reactive); HIV AB P24 Non-Reactive (Non-Reactive); HIV P24 AG Non-Reactive (Non-Reactive)
== END 2024-05-08 22:10 | disposition home or self-care (01) ==
LOC: EC 17:05
DX: Z02.83 Encounter for blood-alcohol and blood-drug test (principal)
CPT/HCPCS: 86706; 86803; 87340; 87390; 99499

== ENCOUNTER → 2024-07-30 | Outpatient (CLI) | payer MEDICAID, OTHER | END | disposition home or self-care (01) | LOC: LABWHC1 10:36 | PROVIDERS: ATTEND Student in an Organized Health Care Education/Training Program | DX: Z34.90 Encounter for supervision of normal pregnancy, unspecified, unspecified trimester (principal) | CPT/HCPCS: 36415; 84702 ==

== ENCOUNTER 2024-08-23 19:30 | Emergency (ER) | payer MEDICAID ==
[2024-08-23 19:47] VITALS: RESP 18; TEMP 98.1
--- NOTE | 2024-08-23 20:17 | ED ---
General Adult HPI - General Chief complaint: Nausea/Vomiting/Diarrhea Stated complaint: 8 weeks,Dizziness,Vomiting Time Seen by Provider: 08/23/24 19:51 Source: patient, EMS Mode of arrival: ambulatory Limitations: no limitations - History of Present Illness Initial comments: 24-year-old female currently 8 weeks presenting with chief complaint of nausea and vomiting. Has been ongoing for the last 2 days. Patient is unable to keep down food or drink. She has been trying Zofran at home which she has been vomiting up shortly after taking. She is a G3, . No pelvic pain or vaginal bleeding. She reports she has had an ultrasound confirming intrauterine . No chest pain or difficulty breathing. Patient states she does have history of hyperemesis gravidarum - Related Data Home Medications Medication Instructions Recorded Confirmed Pnv No.95/Ferrous Fum/Folic AC 1 each PO DAILY 03/04/21 05/23/21 [ Multivitamin Tablet] Aspirin 81 mg PO ONCE 05/10/21 05/23/21 Ferrous Sulfate Drops [Rohan-in-Thao] 65 mg PO ONCE 05/10/21 05/23/21 Labetalol [Trandate] 100 mg PO ONCE 05/10/21 05/23/21 metFORMIN HCL 500 mg PO ONCE 05/10/21 05/23/21 Previous Rx's Medication Instructions Recorded Ibuprofen [Motrin] 600 mg PO Q6HR PRN #30 tab 05/26/21 Labetalol [Trandate] 200 mg PO BID 30 Days #60 tab 05/26/21 Cephalexin [Keflex] 500 mg PO Q12HR 5 Days #10 cap 08/23/24 Metoclopramide [Reglan] 10 mg PO BID PRN #10 tab 08/23/24 Allergies Allergy/AdvReac Type Severity Reaction Status Date / Time Penicillins Allergy Rash/Hives Verified 05/08/24 17:10 Sulfa (Sulfonamide Allergy Swelling Verified 05/08/24 17:10 Antibiotics) Review of Systems ROS Statement: Those systems with pertinent positive or pertinent negative responses have been documented in the HPI. ROS Other: All systems not noted in ROS Statement are negative. Past Medical History Past Medical History: No Reported History Additional Past Medical History / Comment(s): preeclampsia History of Any Multi-Drug Resistant Organisms: None Reported Past Surgical History: No Surgical Hx Reported Past Psychological History: Anxiety Smoking Status: Never smoker Past Alcohol Use History: None Reported Past Drug Use History: None Reported General Exam Limitations: no limitations General appearance: alert, in no apparent distress Head exam: Present: atraumatic, normocephalic, normal inspection Eye exam: Present: normal appearance, EOMI Neck exam: Present: normal inspection. Absent: meningismus Respiratory exam: Present: normal lung sounds bilaterally. Absent: respiratory distress, wheezes, rales, rhonchi, stridor Cardiovascular Exam: Present: regular rate, normal rhythm, normal heart sounds. Absent: systolic murmur, diastolic murmur, rubs, gallop, clicks GI/Abdominal exam: Present: soft. Absent: distended, tenderness, guarding, rebound, rigid Neurological exam: Present: alert, oriented X3 Psychiatric exam: Present: normal affect, normal mood Skin exam: Present: normal color Course Vital Signs 08/23/24 19:44 Temperature 98.1 F Pulse Rate 62 Respiratory 18 Rate Blood Pressure 120/79 O2 Sat by Pulse 98 Oximetry Medical Decision Making - Medical Decision Making Was pt. sent in by a medical professional or institution (Dr. PA, MAINTENANCE SCHEDULER, urgent care, hospital, or [facility]...) When possible be specific @ -No Did you speak to anyone other than the patient for history (EMS, parent, family, police, friend...)? What history was obtained from this source @ -No Did you review nursing and triage notes (agree or disagree)? Why? @ -I reviewed and agree with nursing and triage notes Were old charts reviewed (outside hosp., previous admission, EMS record, old EKG, old radiological studies, urgent care reports/EKG's, [facility] records)? Report findings @ -No old charts were reviewed Differential Diagnosis (chest pain, altered mental status, abdominal pain women, abdominal pain men, vaginal bleeding, weakness, fever, dyspnea, syncope, headache, dizziness, GI bleed, back pain, seizure, CVA, palpatations, mental he alth, musculoskeletal)? @ -Differential includes hyperemesis gravidarum, gastroenteritis, bowel ob struction, appendicitis, cholecystitis, not an all-inclusive list EKG interpreted by me (3pts min.). @ -As above X-rays interpreted by me (1pt min.). @ -None done CT interpreted by me (1pt min.). @ -None done U/S interpreted by me (1pt. min.). @ -None done What testing was considered but not performed or refused? (CT, X-rays, U/S, labs)? Why? @ -None What meds were considered but not given or refused? Why? @ -None Did you discuss the management of the patient with other professionals (prof mcmanus i.e. , PA, MAINTENANCE SCHEDULER, lab, RT, psych nurse, social work coordinator, radio program checker, teacher, v/stol landing signal officer, case management manager)? Give summary @ -No Was smoking cessation discussed for >3mins.? @ -No Was critical care preformed (if so, how long)? @ -No Were there social determinants of health that impacted care today? How? (Homelessness, low income, unemployed, alcoholism, drug addiction, transportation, low edu. Level, literacy, decrease access to med. care, longterm, rehab)? @ -No Was there de-escalation of care discussed even if they declined (Discuss DNR or withdrawal of care, Hospice)? DNR status @ -No What co-morbidities impacted this encounter? (DM, HTN, Smoking, COPD, CAD, Cancer, CVA, ARF, Chemo, Hep., AIDS, mental health diagnosis, sleep apnea, morbid obesity)? @ -None Was patient admitted / discharged? Hospital course, mention meds given and route, prescriptions, significant lab abnormalities, going to OR and other pertinent info. @ -24-year-old female 8 weeks presenting with chief complaint of nausea and vomiting. No pelvic pain or vaginal bleeding. History and physical examination are conducted. White count 12.3. Urine shows large leukocytes, will be treated for asymptomatic bacteriuria with Keflex. Remainder of labs require no immediate action. Patient reports improvement after IV fluids Zofran and Reglan. She is educated on today's findings and treatment plan. She will be sent Reglan for home. Follow-up with [facility]. Follow-up with PCP. Report back to ER with any new or worsening symptoms. Discussed return parameters and answered all questions. Patient conveyed verbal understanding and agreed to the plan. I discussed this case in detail with my attending Dr. Aranda Undiagnosed new problem with uncertain prognosis? @ -No Drug Therapy requiring intensive monitoring for toxicity (Heparin, Nitro, Insulin, Cardizem)? @ -No Were any procedures done? @ -No Diagnosis/symptom? @ -Nausea and vomiting in , asymptomatic bacteriuria Acute, or Chronic, or Acute on Chronic? @ -Acute Uncomplicated (without systemic symptoms) or Complicated (systemic symptoms)? @ -Uncomplicated Side effects of treatment? @ -No Exacerbation, Progression, or Severe Exacerbation? @ -No Poses a threat to life or bodily function? How? (Chest pain, [place], [place], pneumonia, PE, COPD, DKA, ARF, appy, cholecystitis, CVA, Diverticulitis, Homicidal, Suicidal, threat to staff... and all critical care pts) @ -Low likelihood - Lab Data Result diagrams: 08/23/24 20:35 08/23/24 20:35 Lab Results 08/23/24 08/23/24 08/23/24 Range/Units 20:35 20:35 20:35 WBC 12.3 H (3.8-10.6) k/uL RBC 4.74 (3.80-5.40) m/uL Hgb 13.7 (11.4-16.0) gm/dL Hct 40.4 (34.0-46.0) % MCV 85.2 (80.0-100.0) fL MCH 29.0 (25.0-35.0) pg MCHC 34.1 (31.0-37.0) g/dL RDW 13.9 (11.5-15.5) % Plt Count 297 (150-450) k/uL MPV 6.7 Neutrophils % 80 % Lymphocytes % 15 % Monocytes % 3 % Eosinophils % 1 % Basophils % 0 % Neutrophils # 9.8 H (1.3-7.7) k/uL Lymphocytes # 1.9 (1.0-4.8) k/uL Monocytes # 0.4 (0-1.0) k/uL Eosinophils # 0.1 (0-0.7) k/uL Basophils # 0.0 (0-0.2) k/uL Sodium 134 L (137-145) mmol/L Potassium 3.7 (3.5-5.1) mmol/L Chloride 102 (98-107) mmol/L Carbon Dioxide 21 L (22-30) mmol/L Anion Gap 11 mmol/L BUN 5 L (7-17) mg/dL Creatinine 0.44 L (0.52-1.04) mg/dL Est GFR (CKD-EPI)AfAm >90 (>60 ml/min/1.73 sqM) Est GFR (CKD-EPI)NonAf >90 (>60 ml/min/1.73 sqM) Glucose 93 (74-99) mg/dL Plasma Lactic Acid Branden 1.3 (0.7-2.0) mmol/L Calcium 9.0 (8.4-10.2) mg/dL Total Bilirubin 0.6 (0.2-1.3) mg/dL AST 21 (14-36) U/L ALT 17 (4-34) U/L Alkaline Phosphatase 70 (38-126) U/L Total Protein 7.4 (6.3-8.2) g/dL Albumin 4.2 (3.5-5.0) g/dL Amylase 53 (30-110) U/L Lipase 34 (23-300) U/L Urine Color Urine Appearance (Clear) Urine pH (5.0-8.0) Ur Specific [place] (1.001-1.035) Urine Protein (Negative) Urine Glucose (UA) (Negative) Urine Ketones (Negative) Urine Blood (Negative) Urine Nitrite (Negative) Urine Bilirubin (Negative) Urine Urobilinogen (<2.0) mg/dL Ur Leukocyte Esterase (Negative) Urine RBC (0-5) /hpf Urine WBC (0-5) /hpf Ur Squamous Epith Cells (0-4) /hpf Urine Bacteria (None) /hpf Urine Mucus (None) /hpf 08/23/24 Range/Units 20:43 WBC (3.8-10.6) k/uL RBC (3.80-5.40) m/uL Hgb (11.4-16.0) gm/dL Hct (34.0-46.0) % MCV (80.0-100.0) fL MCH (25.0-35.0) pg MCHC (31.0-37.0) g/dL RDW (11.5-15.5) % Plt Count (150-450) k/uL MPV Neutrophils % % Lymphocytes % % Monocytes % % Eosinophils % % Basophils % % Neutrophils # (1.3-7.7) k/uL Lymphocytes # (1.0-4.8) k/uL Monocytes # (0-1.0) k/uL Eosinophils # (0-0.7) k/uL Basophils # (0-0.2) k/uL Sodium (137-145) mmol/L Potassium (3.5-5.1) mmol/L Chloride (98-107) mmol/L Carbon Dioxide (22-30) mmol/L Anion Gap mmol/L BUN (7-17) mg/dL Creatinine (0.52-1.04) mg/dL Est GFR (CKD-EPI)AfAm (>60 ml/min/1.73 sqM) Est GFR (CKD-EPI)NonAf (>60 ml/min/1.73 sqM) Glucose (74-99) mg/dL Plasma Lactic Acid Branden (0.7-2.0) mmol/L Calcium (8.4-10.2) mg/dL Total Bilirubin (0.2-1.3) mg/dL AST (14-36) U/L ALT (4-34) U/L Alkaline Phosphatase (38-126) U/L Total Protein (6.3-8.2) g/dL Albumin (3.5-5.0) g/dL Amylase (30-110) U/L Lipase (23-300) U/L Urine Color Yellow Urine Appearance Cloudy H (Clear) Urine pH 6.0 (5.0-8.0) Ur Specific [place] 1.026 (1.001-1.035) Urine Protein 1+ H (Negative) Urine Glucose (UA) Negative (Negative) Urine Ketones 2+ H (Negative) Urine Blood Trace H (Negative) Urine Nitrite Negative (Negative) Urine Bilirubin Negative (Negative) Urine Urobilinogen 2.0 (<2.0) mg/dL Ur Leukocyte Esterase Large H (Negative) Urine RBC 18 H (0-5) /hpf Urine WBC 65 H (0-5) /hpf Ur Squamous Epith Cells 28 H (0-4) /hpf Urine Bacteria Few H (None) /hpf Urine Mucus Moderate H (None) /hpf Disposition Clinical Impression: Nausea and vomiting during , Asymptomatic bacteriuria Disposition: HOME SELF-CARE Condition: Good Instructions (If sedation given, give patient instructions): Nausea and Vomiting in (ED), Urinary Tract Infection in (ED) Additional Instructions: Follow-up with PCP and [facility]. Report back to ER with any new or worsening symptoms. Prescriptions: Cephalexin [Keflex] 500 mg PO Q12HR 5 Days #10 cap Metoclopramide [Reglan] 10 mg PO BID PRN #10 tab PRN Reason: Nausea Is patient prescribed a controlled substance at d/c from ED?: No Referrals: Didier Olivares MD [Primary Care Provider] - 1-2 days Time of Disposition: 21:58
[2024-08-23] MEDS: ONDANSETRON 4 MG/2 ML VIAL IVP STA (20:31)
[2024-08-23] MEDS: SODIUM CHLORIDE 0.9% 1,000 ML IV STA (20:31)
[2024-08-23 20:46] LABS: Basophils % (A) 0 %; Eosinophils # (A) 0.1 k/uL (0-0.7); Eosinophils % (A) 1 %; HCT 40.4 % (34.0-46.0); HGB 13.7 gm/dL (11.4-16.0); Lymphocytes # (A) 1.9 k/uL (1.0-4.8); Lymphocytes % (A) 15 %; MCHC 34.1 g/dL (31.0-37.0); MCV 85.2 fL (80.0-100.0); Mean Platelet Volume 6.7; Monocytes # (A) 0.4 k/uL (0-1.0); Monocytes % (A) 3 %; Neutrophils # (A) 9.8 k/uL (1.3-7.7); Neutrophils % (A) 80 %; Platelet Count 297 k/uL (150-450); RBC 4.74 m/uL (3.80-5.40); RDW 13.9 % (11.5-15.5); WBC 12.3 k/uL (3.8-10.6)
[2024-08-23 20:58] LABS: ALT 17 U/L (4-34); AST 21 U/L (14-36); African American GFR (CKD) >90 (>60 ml/min/1.73 sqM); Albumin 4.2 g/dL (3.5-5.0); Alkaline Phosphatase 70 U/L (38-126); Amylase 53 U/L (30-110); Anion Gap 11 mmol/L; Blood Urea Nitrogen 5 mg/dL (7-17); Carbon Dioxide 21 mmol/L (22-30); Chloride 102 mmol/L (98-107); Glucose 93 mg/dL (74-99); Lipase 34 U/L (23-300); Non-African American GFR(CKD) >90 (>60 ml/min/1.73 sqM); Potassium 3.7 mmol/L (3.5-5.1); Sodium 134 mmol/L (137-145); Total Bilirubin 0.6 mg/dL (0.2-1.3); Total Protein 7.4 g/dL (6.3-8.2)
[2024-08-23 21:06] LABS: Appearance,Urine Cloudy (Clear); Bacteria,Urine Few /hpf; Bilirubin,Urine Negative (Negative); Blood,Urine Trace (Negative); Color,Urine Yellow; Glucose,Urine (UA) Negative (Negative); Ketones,Urine 2+ (Negative); Leukocyte Esterase,Urine Large (Negative); Mucus,Urine Moderate /hpf; Nitrite,Urine Negative (Negative); Protein,Urine 1+ (Negative); RBC,Urine 18 /hpf (0-5); Specific Gravity,Urine 1.026 (1.001-1.035); Squamous Epithelial Cell,Urine 28 /hpf (0-4); WBC,Urine 65 /hpf (0-5)
[2024-08-23] MEDS: METOCLOPRAMIDE 5 MG/ML 2 ML VIAL IVP STA (21:26)
[2024-08-23 22:08] VITALS: BP 116/89; PULSE 79
== END 2024-08-23 22:07 | disposition home or self-care (01) ==
LOC: EC 19:30
DX: O21.9 Vomiting of pregnancy, unspecified (principal); O23.41 Unspecified infection of urinary tract in pregnancy, first trimester; Z88.0 Allergy status to penicillin; Z88.2 Allergy status to sulfonamides; Z3A.08 8 weeks gestation of pregnancy
CPT/HCPCS: 36415; 80053; 82150; 83605; 83690; 85025; 81001; 87086; 99284; 96374; 96375; 96361; J2765; J2405

== ENCOUNTER 2024-08-29 11:44 | Emergency (ER) | payer MEDICAID, OTHER ==
[2024-08-29] MEDS: SODIUM CHLORIDE 0.9% 1,000 ML IV SCH (12:19)
[2024-08-29] MEDS: diphenhydrAMINE 50 MG/ML 1 ML VIAL IVP STA (12:28)
[2024-08-29] MEDS: PYRIDOXINE 100 MG/ML 1 ML VIAL IVP STA (12:28)
[2024-08-29] MEDS: PROCHLORPERAZINE INJ 10 MG/2 ML VIAL IVP STA (12:29)
[2024-08-29 12:34] LABS: Basophils % (A) 0 %; Eosinophils # (A) 0.1 k/uL (0-0.7); Eosinophils % (A) 1 %; HCT 42.6 % (34.0-46.0); HGB 14.5 gm/dL (11.4-16.0); Lymphocytes # (A) 1.6 k/uL (1.0-4.8); Lymphocytes % (A) 15 %; MCH 29.4 pg (25.0-35.0); MCHC 34.1 g/dL (31.0-37.0); MCV 86.2 fL (80.0-100.0); Mean Platelet Volume 7.1; Monocytes # (A) 0.3 k/uL (0-1.0); Monocytes % (A) 2 %; Neutrophils # (A) 8.7 k/uL (1.3-7.7); Neutrophils % (A) 82 %; Platelet Count 317 k/uL (150-450); RBC 4.94 m/uL (3.80-5.40); RDW 14.4 % (11.5-15.5); WBC 10.7 k/uL (3.8-10.6)
--- NOTE | 2024-08-29 12:38 | ED ---
Nausea/Vomiting/Diarrhea HPI - General Chief complaint: Nausea/Vomiting/Diarrhea Stated complaint: Nausea vomitting 9wks preg Time Seen by Provider: 08/29/24 12:05 Source: patient, RN notes reviewed Mode of arrival: ambulatory Limitations: no limitations - History of Present Illness Initial comments: This is a 24-year-old female who presents to the emergency department for nausea and vomiting in . Patient is 9 weeks and . States that she had hyperemesis gravidarum in her first and this was well- controlled with Zofran. However, she is currently on both Zofran and Reglan but is unable to keep them down. Denies any abdominal pain or vaginal bleeding. She is currently on Keflex for a UTI as well. Currently follows with [facility] in [place]. MD complaint: nausea, vomiting - Related Data Home Medications Medication Instructions Recorded Confirmed Pnv No.95/Ferrous Fum/Folic AC 1 each PO DAILY 03/04/21 05/23/21 [ Multivitamin Tablet] Aspirin 81 mg PO ONCE 05/10/21 05/23/21 Ferrous Sulfate Drops [Rohan-in-Thao] 65 mg PO ONCE 05/10/21 05/23/21 Labetalol [Trandate] 100 mg PO ONCE 05/10/21 05/23/21 metFORMIN HCL 500 mg PO ONCE 05/10/21 05/23/21 Previous Rx's Medication Instructions Recorded Ibuprofen [Motrin] 600 mg PO Q6HR PRN #30 tab 05/26/21 Labetalol [Trandate] 200 mg PO BID 30 Days #60 tab 05/26/21 Cephalexin [Keflex] 500 mg PO Q12HR 5 Days #10 cap 08/23/24 Metoclopramide [Reglan] 10 mg PO BID PRN #10 tab 08/23/24 Prochlorperazine 25 mg RECTAL BID PRN #24 suppositor 08/29/24 Prochlorperazine [Compazine] 10 mg PO Q6H PRN #30 tab 08/29/24 Allergies Allergy/AdvReac Type Severity Reaction Status Date / Time Penicillins Allergy Rash/Hives Verified 05/08/24 17:10 Sulfa (Sulfonamide Allergy Swelling Verified 05/08/24 17:10 Antibiotics) Review of Systems ROS Statement: Those systems with pertinent positive or pertinent negative responses have been documented in the HPI. ROS Other: All systems not noted in ROS Statement are negative. Past Medical History Past Medical History: No Reported History Additional Past Medical History / Comment(s): preeclampsia & hyperemesis, PCOS History of Any Multi-Drug Resistant Organisms: None Reported Past Surgical History: No Surgical Hx Reported Past Psychological History: Anxiety Smoking Status: Never smoker Past Alcohol Use History: None Reported Past Drug Use History: None Reported General Exam Limitations: no limitations General appearance: alert, in no apparent distress Head exam: Present: atraumatic, normocephalic, normal inspection Respiratory exam: Present: normal lung sounds bilaterally. Absent: respiratory distress, wheezes, rales, rhonchi, stridor Cardiovascular Exam: Present: regular rate, normal rhythm Neurological exam: Present: alert, oriented X3, CN II-XII intact Psychiatric exam: Present: normal affect, normal mood Skin exam: Present: warm, dry, intact, normal color. Absent: rash Course Vital Signs 08/29/24 08/29/24 08/29/24 11:51 13:32 15:05 Temperature 98.5 F 98.1 F 98.4 F Pulse Rate 81 82 86 Respiratory 16 20 20 Rate Blood Pressure 155/87 131/80 144/84 O2 Sat by Pulse 99 100 99 Oximetry Medical Decision Making - Medical Decision Making This is a 24 year old female who presents to the emergency department for nausea and vomiting in . Was pt. sent in by a medical professional or institution? @ -No Did you speak to anyone other than the patient for history? @ -No Did you review nursing and triage notes? @ -Yes, and I agree, it is accurate with regards to the patient's symptoms. Were old charts reviewed? @ -Urine culture from 08/23/2024 which had no growth. Differential Diagnosis? @ -Differential Nausea and Vomiting: Gastroenteritis, cholecystitis, appendicitis, pancreatitis, migraine, benign positional vertigo, food borne illness, pyelonephritis, irritable bowel syndrome, influenza, Covid, GERD, incarcerated hernia, intestinal obstruction, this is not meant to be an all-inclusive list. EKG interpreted by me (3pts min.)? @ -Not obtained X-rays interpreted by me (1pt min.)? @ -Not obtained CT interpreted by me (1pt min.)? @ -Not obtained U/S interpreted by me (1pt. min.)? @ -Not obtained What testing was considered but not performed? (CT, X-rays, U/S, labs)? Why? @ -None What meds were considered but not given? Why? @ -None Did you discuss the management of the patient with other professionals? @ -No Did you reconcile home meds? @ -No Was smoking cessation discussed for >3mins.? @ -No Was critical care preformed (if so, how long)? @ -No Were there social determinants of health that impacted care today? How? (Homelessness, low income, unemployed, alcoholism, drug addiction, transportation, low edu. Level, literacy, decrease access to med. care, [facility], rehab)? @ -No Was there de-escalation of care discussed even if they declined? (Discuss DNR or withdrawal of care, Hospice)? @ -No What co-morbidities impacted this encounter? (DM, HTN, Smoking, COPD, CAD, Cancer, CVA, Hep., AIDS, mental health diagnosis, sleep apnea, morbid obesity)? @ - Was patient admitted / discharged? @ -Discharged. Lab work relatively unremarkable. Urinalysis was grossly contaminated making it hard to determine whether or not it is infected. However, urine culture from 08/23/2024 had no growth and she is already on Keflex for any potential infection. Will just plan to culture the urine this time as well. She was given 2 L of IV fluids and given that she had been on Zofran and Reglan without any relief we did a trial of Compazine along with Benadryl and vitamin B6. She did find this very effective and was able to tolerate oral intake without difficulty. Prescription for Compazine provided with dosing instructions reviewed. Advised she otherwise follow-up with her SENIOR BIOSTATISTICIAN. Patient discharged home in stable condition. Case discussed with ED attending Dr. Navas. Return precautions reviewed in depth, the patient is instructed to return to the emergency department with any new, worsening, or concerning symptoms. Patient verbalized understanding. Undiagnosed new problem with uncertain prognosis? @ -None Drug Therapy requiring intensive monitoring for toxicity (Heparin, Nitro, Insulin, Cardizem)? @ -None Were any procedures done? @ -None Diagnosis/symptom? @ -Nausea and vomiting in Acute, or Chronic, or Acute on Chronic? @ -Acute Uncomplicated (without systemic symptoms) or Complicated (systemic symptoms)? @ -Uncomplicated Side effects of treatment? @ -None Exacerbation, Progression, or Severe Exacerbation] @ -Not applicable Poses a threat to life or bodily function? @ -No - Lab Data Result diagrams: 08/29/24 12:12 08/29/24 12:12 Lab Results 08/29/24 08/29/24 08/29/24 Range/Units 12:12 12:12 12:32 WBC 10.7 H (3.8-10.6) k/uL RBC 4.94 (3.80-5.40) m/uL Hgb 14.5 (11.4-16.0) gm/dL Hct 42.6 (34.0-46.0) % MCV 86.2 (80.0-100.0) fL MCH 29.4 (25.0-35.0) pg MCHC 34.1 (31.0-37.0) g/dL RDW 14.4 (11.5-15.5) % Plt Count 317 (150-450) k/uL MPV 7.1 Neutrophils % 82 % Lymphocytes % 15 % Monocytes % 2 % Eosinophils % 1 % Basophils % 0 % Neutrophils # 8.7 H (1.3-7.7) k/uL Lymphocytes # 1.6 (1.0-4.8) k/uL Monocytes # 0.3 (0-1.0) k/uL Eosinophils # 0.1 (0-0.7) k/uL Basophils # 0.0 (0-0.2) k/uL Sodium 134 L (137-145) mmol/L Potassium 4.0 (3.5-5.1) mmol/L Chloride 102 (98-107) mmol/L Carbon Dioxide 21 L (22-30) mmol/L Anion Gap 11 mmol/L BUN 7 (7-17) mg/dL Creatinine 0.46 L (0.52-1.04) mg/dL Est GFR (CKD-EPI)AfAm >90 (>60 ml/min/1.73 sqM) Est GFR (CKD-EPI)NonAf >90 (>60 ml/min/1.73 sqM) Glucose 98 (74-99) mg/dL Calcium 9.5 (8.4-10.2) mg/dL Total Bilirubin 0.5 (0.2-1.3) mg/dL AST 17 (14-36) U/L ALT 17 (4-34) U/L Alkaline Phosphatase 74 (38-126) U/L Total Protein 7.5 (6.3-8.2) g/dL Albumin 4.3 (3.5-5.0) g/dL HCG, Quant 005438.0 mIU/mL Urine Color Yellow Urine Appearance Turbid H (Clear) Urine pH 6.0 (5.0-8.0) Ur Specific [place] 1.032 (1.001-1.035) Urine Protein 2+ H (Negative) Urine Glucose (UA) Negative (Negative) Urine Ketones 3+ H (Negative) Urine Blood Small H (Negative) Urine Nitrite Negative (Negative) Urine Bilirubin Negative (Negative) Urine Urobilinogen <2.0 (<2.0) mg/dL Ur Leukocyte Esterase Large H (Negative) Urine RBC 38 H (0-5) /hpf Urine WBC 122 H (0-5) /hpf Ur Squamous Epith Cells 74 H (0-4) /hpf Urine Bacteria Moderate H (None) /hpf Urine Mucus Many H (None) /hpf Disposition Clinical Impression: Nausea and vomiting during Disposition: HOME SELF-CARE Instructions (If sedation given, give patient instructions): Nausea and Vomiting in (ED) Additional Instructions: Return to the emergency department with any new, worsening, or concerning symptoms. You can take the oral Compazine up to every 6 hours or use the Compazine suppositories twice daily. Follow-up with your SENIOR BIOSTATISTICIAN. Prescriptions: Prochlorperazine [Compazine] 10 mg PO Q6H PRN #30 tab PRN Reason: Nausea And Vomiting Prochlorperazine 25 mg RECTAL BID PRN #24 suppositor PRN Reason: Nausea And Vomiting Is patient prescribed a controlled substance at d/c from ED?: No Referrals: Didier Olivares MD [Primary Care Provider] - 1-2 days Time of Disposition: 14:32
[2024-08-29 12:47] LABS: ALT 17 U/L (4-34); AST 17 U/L (14-36); African American GFR (CKD) >90 (>60 ml/min/1.73 sqM); Albumin 4.3 g/dL (3.5-5.0); Alkaline Phosphatase 74 U/L (38-126); Anion Gap 11 mmol/L; Blood Urea Nitrogen 7 mg/dL (7-17); Calcium 9.5 mg/dL (8.4-10.2); Carbon Dioxide 21 mmol/L (22-30); Chloride 102 mmol/L (98-107); Glucose 98 mg/dL (74-99); Non-African American GFR(CKD) >90 (>60 ml/min/1.73 sqM); Sodium 134 mmol/L (137-145); Total Bilirubin 0.5 mg/dL (0.2-1.3); Total Protein 7.5 g/dL (6.3-8.2)
[2024-08-29 13:27] LABS: Appearance,Urine Turbid (Clear); Bacteria,Urine Moderate /hpf; Bilirubin,Urine Negative (Negative); Blood,Urine Small (Negative); Color,Urine Yellow; Glucose,Urine (UA) Negative (Negative); Ketones,Urine 3+ (Negative); Leukocyte Esterase,Urine Large (Negative); Mucus,Urine Many /hpf; Nitrite,Urine Negative (Negative); Protein,Urine 2+ (Negative); RBC,Urine 38 /hpf (0-5); Specific Gravity,Urine 1.032 (1.001-1.035); Squamous Epithelial Cell,Urine 74 /hpf (0-4); Urobilinogen,Urine <2.0 mg/dL (<2.0); WBC,Urine 122 /hpf (0-5)
[2024-08-29 13:34] VITALS: RESP 20
[2024-08-29 15:06] VITALS: BP 144/84; PULSE 86; TEMP 98.4
== END 2024-08-29 15:06 | disposition home or self-care (01) ==
LOC: EC 11:44
DX: O21.9 Vomiting of pregnancy, unspecified (principal); O21.0 Mild hyperemesis gravidarum; Z88.0 Allergy status to penicillin; Z88.2 Allergy status to sulfonamides; Z3A.09 9 weeks gestation of pregnancy
CPT/HCPCS: 36415; 80053; 85025; 81001; 84702; 87086; 99284; 96374; 96375; 96361; J1200; J0780; J3415

== ENCOUNTER 2024-08-30 19:32 | Observation (INO) | payer MEDICAID, OTHER ==
[2024-08-30] MEDS: DEXTROSE 5%-0.9% NACL 1,000 ML IV SCH (20:03)
[2024-08-30] MEDS: ONDANSETRON 4 MG/2 ML VIAL IVP STA (20:09)
[2024-08-30 20:11] LABS: Basophils % (A) 0 %; Eosinophils # (A) 0.1 k/uL (0-0.7); Eosinophils % (A) 1 %; HCT 41.3 % (34.0-46.0); HGB 14.2 gm/dL (11.4-16.0); Lymphocytes # (A) 1.7 k/uL (1.0-4.8); Lymphocytes % (A) 14 %; MCH 29.1 pg (25.0-35.0); MCHC 34.5 g/dL (31.0-37.0); MCV 84.4 fL (80.0-100.0); Mean Platelet Volume 6.9; Monocytes # (A) 0.4 k/uL (0-1.0); Monocytes % (A) 4 %; Neutrophils # (A) 10.1 k/uL (1.3-7.7); Neutrophils % (A) 81 %; Platelet Count 303 k/uL (150-450); WBC 12.4 k/uL (3.8-10.6)
[2024-08-30 20:21] LABS: ALT 16 U/L (4-34); AST 22 U/L (14-36); African American GFR (CKD) >90 (>60 ml/min/1.73 sqM); Albumin 4.4 g/dL (3.5-5.0); Alkaline Phosphatase 64 U/L (38-126); Anion Gap 11 mmol/L; Blood Urea Nitrogen 6 mg/dL (7-17); Calcium 9.5 mg/dL (8.4-10.2); Carbon Dioxide 18 mmol/L (22-30); Chloride 103 mmol/L (98-107); Glucose 91 mg/dL (74-99); Non-African American GFR(CKD) >90 (>60 ml/min/1.73 sqM); Potassium 3.9 mmol/L (3.5-5.1); Sodium 132 mmol/L (137-145); Total Bilirubin 0.7 mg/dL (0.2-1.3); Total Protein 7.6 g/dL (6.3-8.2)
[2024-08-30] MEDS: METOCLOPRAMIDE 5 MG/ML 2 ML VIAL IVP STA (21:17)
[2024-08-30] MEDS ORDERED: PROMETHAZINE SUPPOSITORY 12.5 MG SUPP RECTAL PRN (21:36)
[2024-08-30] MEDS ORDERED: NALOXONE 0.4 MG/ML 1 ML VIAL IV PRN (21:37)
--- NOTE | 2024-08-30 21:42 | ED ---
Nausea/Vomiting/Diarrhea HPI - General Chief complaint: Nausea/Vomiting/Diarrhea Stated complaint: 9 weeks preg,Dehydration Time Seen by Provider: 08/30/24 19:37 Source: patient Mode of arrival: ambulatory Limitations: no limitations - History of Present Illness Initial comments: 24-year-old female currently 9 weeks presenting with chief complaint of nausea and vomiting. Patient has history of hyperemesis gravidarum. She was seen here last week for nausea and vomiting and also yesterday. Patient was already taking Zofran and Reglan, yesterday they added Compazine to her medications. She reports that she has still been vomiting frequently at home. She called her OB who is out of [place] and was told to come to the ER for possible admission. She is having no pelvic pain or vaginal bleeding. No urinary symptoms. No fever. No URI-like symptoms. - Related Data Home Medications Medication Instructions Recorded Confirmed Pnv No.95/Ferrous Fum/Folic AC 1 each PO DAILY 03/04/21 05/23/21 [ Multivitamin Tablet] Aspirin 81 mg PO ONCE 05/10/21 05/23/21 Ferrous Sulfate Drops [Rohan-in-Thao] 65 mg PO ONCE 05/10/21 05/23/21 Labetalol [Trandate] 100 mg PO ONCE 05/10/21 05/23/21 metFORMIN HCL 500 mg PO ONCE 05/10/21 05/23/21 Previous Rx's Medication Instructions Recorded Ibuprofen [Motrin] 600 mg PO Q6HR PRN #30 tab 05/26/21 Labetalol [Trandate] 200 mg PO BID 30 Days #60 tab 05/26/21 Cephalexin [Keflex] 500 mg PO Q12HR 5 Days #10 cap 08/23/24 Metoclopramide [Reglan] 10 mg PO BID PRN #10 tab 08/23/24 Prochlorperazine 25 mg RECTAL BID PRN #24 suppositor 08/29/24 Prochlorperazine [Compazine] 10 mg PO Q6H PRN #30 tab 08/29/24 Allergies Allergy/AdvReac Type Severity Reaction Status Date / Time Penicillins Allergy Rash/Hives Verified 08/30/24 19:34 Sulfa (Sulfonamide Allergy Swelling Verified 08/30/24 19:34 Antibiotics) Review of Systems ROS Statement: Those systems with pertinent positive or pertinent negative responses have been documented in the HPI. ROS Other: All systems not noted in ROS Statement are negative. Past Medical History Past Medical History: No Reported History Additional Past Medical History / Comment(s): preeclampsia & hyperemesis, PCOS History of Any Multi-Drug Resistant Organisms: None Reported Past Surgical History: No Surgical Hx Reported Past Psychological History: Anxiety Smoking Status: Never smoker Past Alcohol Use History: None Reported Past Drug Use History: None Reported General Exam Limitations: no limitations General appearance: alert, in no apparent distress Head exam: Present: atraumatic, normocephalic, normal inspection Eye exam: Present: normal appearance, EOMI Neck exam: Present: normal inspection. Absent: meningismus Respiratory exam: Present: normal lung sounds bilaterally. Absent: respiratory distress, wheezes, rales, rhonchi, stridor Cardiovascular Exam: Present: regular rate, normal rhythm, normal heart sounds. Absent: systolic murmur, diastolic murmur, rubs, gallop, clicks GI/Abdominal exam: Present: soft. Absent: distended, tenderness, guarding, rebound, rigid Neurological exam: Present: alert, oriented X3 Psychiatric exam: Present: normal affect, normal mood Skin exam: Present: warm, dry, normal color Course Vital Signs 08/30/24 08/30/24 08/30/24 19:34 22:03 22:13 Temperature 98.8 F 97.8 F 98.3 F Pulse Rate 86 87 Pulse Rate [ 82 Right Brachial] Respiratory 18 17 16 Rate Blood Pressure 130/85 129/81 Blood Pressure 119/76 [Right Arm] O2 Sat by Pulse 99 97 96 Oximetry Medical Decision Making - Medical Decision Making Was pt. sent in by a medical professional or institution (, PA, GRAB JACK WORKER, urgent care, hospital, or senior care...) When possible be specific @ -No Did you speak to anyone other than the patient for history (EMS, parent, family, police, friend...)? What history was obtained from this source @ -No Did you review nursing and triage notes (agree or disagree)? Why? @ -I reviewed and agree with nursing and triage notes Were old charts reviewed (outside hosp., previous admission, EMS record, old EKG, old radiological studies, urgent care reports/EKG's, senior care records)? Report findings @ -Yesterday's visit was reviewed Differential Diagnosis (chest pain, altered mental status, abdominal pain women, abdominal pain men, vaginal bleeding, weakness, fever, dyspnea, syncope, headache, dizziness, GI bleed, back pain, seizure, CVA, palpatations, mental health, musculoskeletal)? @ -Differential includes hyperemesis gravidarum, gastroenteritis, bowel obstruction, UTI, not an all-inclusive list EKG interpreted by me (3pts min.). @ -As above X-rays interpreted by me (1pt min.). @ -None done CT interpreted by me (1pt min.). @ -None done U/S interpreted by me (1pt. min.). @ -None done What testing was considered but not performed or refused? (CT, X-rays, U/S, labs)? Why? @ -None What meds were considered but not given or refused? Why? @ -None Did you discuss the management of the patient with other professionals (professionals i.e. DrJuany, PA, GRAB JACK WORKER, lab, RT, psych nurse, manager social responsibility, parole supervisor, teacher, postal sorting officer, porter sample case)? Give summary @ -Spoke with Dr. Vera who accepts admission, advised adding Phenergan suppositories as well Was smoking cessation discussed for >3mins.? @ -No Was critical care preformed (if so, how long)? @ -No Were there social determinants of health that impacted care today? How? (Homelessness, low income, unemployed, alcoholism, drug addiction, transportation, low edu. Level, literacy, decrease access to med. care, care home, rehab)? @ -No Was there de-escalation of care discussed even if they declined (Discuss DNR or withdrawal of care, Hospice)? DNR status @ -No What co-morbidities impacted this encounter? (DM, HTN, Smoking, COPD, CAD, Cancer, CVA, ARF, Chemo, Hep., AIDS, mental health diagnosis, sleep apnea, morbid obesity)? @ -None Was patient admitted / discharged? Hospital course, mention meds given and route, prescriptions, significant lab abnormalities, going to OR and other pertinent info. @ -24-year-old female presenting with chief complaint of nausea and vomiting. She is 9 weeks . No pelvic pain or vaginal bleeding. Patient does have history of hyperemesis gravidarum. CBC and CMP are completed, UA is still pending. Considering that patient has been taking Zofran, Reglan, and Compazine at home without relief she will be admitted for intractable nausea and vomiting and IV hydration. Patient is agreeable with this plan. I discussed this case with my attending Dr. Aranda. Undiagnosed new problem with uncertain prognosis? @ -No Drug Therapy requiring intensive monitoring for toxicity (Heparin, Nitro, Insulin, Cardizem)? @ -No Were any procedures done? @ -No Diagnosis/symptom? @ -Intractable nausea and vomiting in Acute, or Chronic, or Acute on Chronic? @ -Acute Uncomplicated (without systemic symptoms) or Complicated (systemic symptoms)? @ -Complicated Side effects of treatment? @ -No Exacerbation, Progression, or Severe Exacerbation? @ -No Poses a threat to life or bodily function? How? (Chest pain, USA, AR, pneumonia, PE, COPD, DKA, ARF, appy, cholecystitis, CVA, Diverticulitis, Homicidal, Suicidal, threat to staff... and all critical care pts) @ -Yes - Lab Data Result diagrams: 08/31/24 05:38 08/31/24 05:38 Lab Results 08/30/24 08/30/24 Range/Units 19:56 19:56 WBC 12.4 H (3.8-10.6) k/uL RBC 4.90 (3.80-5.40) m/uL Hgb 14.2 (11.4-16.0) gm/dL Hct 41.3 (34.0-46.0) % MCV 84.4 (80.0-100.0) fL MCH 29.1 (25.0-35.0) pg MCHC 34.5 (31.0-37.0) g/dL RDW 14.0 (11.5-15.5) % Plt Count 303 (150-450) k/uL MPV 6.9 Neutrophils % 81 % Lymphocytes % 14 % Monocytes % 4 % Eosinophils % 1 % Basophils % 0 % Neutrophils # 10.1 H (1.3-7.7) k/uL Lymphocytes # 1.7 (1.0-4.8) k/uL Monocytes # 0.4 (0-1.0) k/uL Eosinophils # 0.1 (0-0.7) k/uL Basophils # 0.0 (0-0.2) k/uL Sodium 132 L (137-145) mmol/L Potassium 3.9 (3.5-5.1) mmol/L Chloride 103 (98-107) mmol/L Carbon Dioxide 18 L (22-30) mmol/L Anion Gap 11 mmol/L BUN 6 L (7-17) mg/dL Creatinine 0.41 L (0.52-1.04) mg/dL Est GFR (CKD-EPI)AfAm >90 (>60 ml/min/1.73 sqM) Est GFR (CKD-EPI)NonAf >90 (>60 ml/min/1.73 sqM) Glucose 91 (74-99) mg/dL Calcium 9.5 (8.4-10.2) mg/dL Total Bilirubin 0.7 (0.2-1.3) mg/dL AST 22 (14-36) U/L ALT 16 (4-34) U/L Alkaline Phosphatase 64 (38-126) U/L Total Protein 7.6 (6.3-8.2) g/dL Albumin 4.4 (3.5-5.0) g/dL Disposition Clinical Impression: Nausea and vomiting during Disposition: ADMITTED IP TO THIS [facility] Condition: Good Time of Disposition: 21:42
[2024-08-30 22:54] LABS: Appearance,Urine Cloudy (Clear); Bacteria,Urine Occasional /hpf; Bilirubin,Urine Negative (Negative); Blood,Urine Small (Negative); Color,Urine Yellow; Glucose,Urine (UA) Negative (Negative); Ketones,Urine 4+ (Negative); Leukocyte Esterase,Urine Large (Negative); Mucus,Urine Rare /hpf; Nitrite,Urine Negative (Negative); Protein,Urine 2+ (Negative); RBC,Urine 11 /hpf (0-5); Specific Gravity,Urine 1.034 (1.001-1.035); Squamous Epithelial Cell,Urine 19 /hpf (0-4); Urobilinogen,Urine <2.0 mg/dL (<2.0); WBC,Urine 78 /hpf (0-5)
[2024-08-30 22:57] VITALS: RESP 16
[2024-08-31] MEDS: LACTATED RINGERS 1,000 ML IV SCH
[2024-08-31] MEDS: ONDANSETRON 4 MG/2 ML VIAL IVP PRN (03:57)
[2024-08-31 06:05] LABS: Basophils % (A) 0 %; Eosinophils % (A) 0 %; HCT 40.9 % (34.0-46.0); HGB 13.7 gm/dL (11.4-16.0); Lymphocytes # (A) 2.1 k/uL (1.0-4.8); Lymphocytes % (A) 22 %; MCH 28.9 pg (25.0-35.0); MCHC 33.5 g/dL (31.0-37.0); MCV 86.2 fL (80.0-100.0); Mean Platelet Volume 6.7; Monocytes # (A) 0.6 k/uL (0-1.0); Monocytes % (A) 6 %; Neutrophils # (A) 6.5 k/uL (1.3-7.7); Neutrophils % (A) 69 %; Platelet Count 284 k/uL (150-450); RBC 4.75 m/uL (3.80-5.40); RDW 14.1 % (11.5-15.5); WBC 9.4 k/uL (3.8-10.6)
[2024-08-31 06:22] LABS: ALT 17 U/L (4-34); AST 18 U/L (14-36); African American GFR (CKD) >90 (>60 ml/min/1.73 sqM); Albumin 3.9 g/dL (3.5-5.0); Alkaline Phosphatase 59 U/L (38-126); Anion Gap 10 mmol/L; Blood Urea Nitrogen 6 mg/dL (7-17); Calcium 9.5 mg/dL (8.4-10.2); Carbon Dioxide 18 mmol/L (22-30); Chloride 105 mmol/L (98-107); Glucose 83 mg/dL (74-99); Non-African American GFR(CKD) >90 (>60 ml/min/1.73 sqM); Potassium 3.6 mmol/L (3.5-5.1); Sodium 133 mmol/L (137-145); Total Bilirubin 0.7 mg/dL (0.2-1.3); Total Protein 6.9 g/dL (6.3-8.2)
[2024-08-31] MEDS: METOCLOPRAMIDE 5 MG/ML 2 ML VIAL IVP PRN (09:04)
[2024-08-31 13:41] VITALS: BP 125/84; PULSE 77; TEMP 98.9
--- NOTE | 2024-08-31 16:14 | P.HPOB ---
History of Present Illness H&P Date: 08/31/24 Chief Complaint: Nausea and vomiting of , 9 weeks This is a 24-year-old 3 para 1-0-1-1 at 9 weeks of that presents to labor and delivery with complaints of increasing nausea and vomiting. Patient is being seen by an outside DEVELOPER ANALYST. Patient is taking Zofran, Reglan, Compazine. Patient states her nausea and vomiting continues despite these medications. Patient was seen on Thursday for nausea and vomiting twice this week in the emergency department. Patient states she had significant hyperemesis with her first . DEVELOPER ANALYST history 3 para 1 Prior 37-week delivery induced for gestational hypertension, GDM. Current Review of Systems Constitutional: Reports fatigue, Denies chills, Denies fever Ears, nose, mouth and throat: Denies headache Cardiovascular: Denies leg edema Respiratory: Denies dyspnea Gastrointestinal: Reports nausea, Reports vomiting, Denies constipation, Denies diarrhea Genitourinary: Reports Past Medical History Past Medical History: No Reported History Additional Past Medical History / Comment(s): preeclampsia & hyperemesis, PCOS, GDM History of Any Multi-Drug Resistant Organisms: None Reported Past Surgical History: No Surgical Hx Reported Past Psychological History: Anxiety Smoking Status: Never smoker Past Alcohol Use History: None Reported Past Drug Use History: None Reported Medications and Allergies Home Medications Medication Instructions Recorded Confirmed Type Pnv No.95/Ferrous Fum/Folic AC 1 each PO DAILY 03/04/21 05/23/21 History [ Multivitamin Tablet] Aspirin 81 mg PO ONCE 05/10/21 05/23/21 History Ferrous Sulfate Drops [Rohan-in-Thao] 65 mg PO ONCE 05/10/21 05/23/21 History Labetalol [Trandate] 100 mg PO ONCE 05/10/21 05/23/21 History metFORMIN HCL 500 mg PO ONCE 05/10/21 05/23/21 History Ibuprofen [Motrin] 600 mg PO Q6HR PRN #30 tab 05/26/21 Rx Labetalol [Trandate] 200 mg PO BID 30 Days #60 tab 05/26/21 Rx Cephalexin [Keflex] 500 mg PO Q12HR 5 Days #10 cap 08/23/24 Rx Metoclopramide [Reglan] 10 mg PO BID PRN #10 tab 08/23/24 Rx Prochlorperazine 25 mg RECTAL BID PRN #24 suppositor 08/29/24 Rx Prochlorperazine [Compazine] 10 mg PO Q6H PRN #30 tab 08/29/24 Rx Allergies Allergy/AdvReac Type Severity Reaction Status Date / Time Penicillins Allergy Rash/Hives Verified 08/30/24 19:34 Sulfa (Sulfonamide Allergy Swelling Verified 08/30/24 19:34 Antibiotics) Exam Osteopathic Statement: *. No significant issues noted on an osteopathic structural exam other than those noted in the History and Physical/Consult. Vital Signs Temp Pulse Pulse Resp BP BP Pulse Ox 08/31/24 08:00 98.9 F 77 16 125/84 100 08/30/24 22:13 98.3 F 82 16 119/76 96 08/30/24 22:03 97.8 F 87 17 129/81 97 08/30/24 19:34 98.8 F 86 18 130/85 99 Intake and Output 08/31/24 08/31/24 08/31/24 06:59 14:59 22:59 Other: # Voids 1 Targeted physical exam is performed this date General Is well-nourished well- developed female in no acute distress, patient appears comfortable in bed. Patient denies nausea vomiting this morning. States she feels much improved from last evening. Results Result Diagrams: 08/31/24 05:38 08/31/24 05:38 Abnormal Lab Results - Last 24 Hours (Table) 08/30/24 08/30/24 08/30/24 Range/Units 19:56 19:56 22:23 WBC 12.4 H (3.8-10.6) k/uL Neutrophils # 10.1 H (1.3-7.7) k/uL Sodium 132 L (137-145) mmol/L Carbon Dioxide 18 L (22-30) mmol/L BUN 6 L (7-17) mg/dL Creatinine 0.41 L (0.52-1.04) mg/dL Urine Appearance Cloudy H (Clear) Urine Protein 2+ H (Negative) Urine Ketones 4+ H (Negative) Urine Blood Small H (Negative) Ur Leukocyte Esterase Large H (Negative) Urine RBC 11 H (0-5) /hpf Urine WBC 78 H (0-5) /hpf Ur Squamous Epith Cells 19 H (0-4) /hpf Urine Bacteria Occasional H (None) /hpf Urine Mucus Rare H (None) /hpf 08/31/24 Range/Units 05:38 WBC (3.8-10.6) k/uL Neutrophils # (1.3-7.7) k/uL Sodium 133 L (137-145) mmol/L Carbon Dioxide 18 L (22-30) mmol/L BUN 6 L (7-17) mg/dL Creatinine 0.43 L (0.52-1.04) mg/dL Urine Appearance (Clear) Urine Protein (Negative) Urine Ketones (Negative) Urine Blood (Negative) Ur Leukocyte Esterase (Negative) Urine RBC (0-5) /hpf Urine WBC (0-5) /hpf Ur Squamous Epith Cells (0-4) /hpf Urine Bacteria (None) /hpf Urine Mucus (None) /hpf Assessment and Plan (1) 9 weeks gestation of Status: Acute Code(s): Z3A.09 - 9 WEEKS GESTATION OF SNOMED Code(s): 953714 (2) Nausea and vomiting during Status: Acute Code(s): O21.9 - VOMITING OF , UNSPECIFIED SNOMED Code(s): 1723003093 Plan: Admit to labor and delivery for IV hydration Zofran, Reglan, Phenergan suppositories as needed Clear liquid diet Will OBV and reevaluate in the morning Late entry due to computer issues this morning
--- NOTE | 2024-08-31 16:15 | P.DS ---
Providers Date of admission: 08/30/24 21:59 Expected date of discharge: 08/31/24 Attending physician: Kaylene Vera Primary care physician: Yon Olivares - Discharge Diagnosis(es) (1) 9 weeks gestation of Status: Acute (2) Nausea and vomiting during Status: Acute Hospital Course: 24-year-old G3, P1 at 9 weeks of that presents with increasing complaints of nausea and vomiting of . Patient had a prior 37-week delivery induced for gestational hypertension, GDM. Patient received IV fluids through the evening in addition to scheduled Zofran and Reglan declined Phenergan suppositories. Patient is feeling much improved this morning. Patient states she feels well enough to be discharged home. She has close follow-up with her primary RABBET OPERATOR. Patient Condition at Discharge: Good Plan - Discharge Summary New Discharge Prescriptions: No Action metFORMIN HCL 500 mg PO ONCE Aspirin 81 mg PO ONCE Labetalol [Trandate] 100 mg PO ONCE Ferrous Sulfate Drops [Rohan-in-Thao] 65 mg PO ONCE Prochlorperazine [Compazine] 10 mg PO Q6H PRN #30 tab PRN Reason: Nausea And Vomiting Pnv No.95/Ferrous Fum/Folic AC [ Multivitamin Tablet] 1 each PO DAILY Ibuprofen [Motrin] 600 mg PO Q6HR PRN #30 tab PRN Reason: Pain Labetalol [Trandate] 200 mg PO BID 30 Days #60 tab Cephalexin [Keflex] 500 mg PO Q12HR 5 Days #10 cap Metoclopramide [Reglan] 10 mg PO BID PRN #10 tab PRN Reason: Nausea Prochlorperazine 25 mg RECTAL BID PRN #24 suppositor PRN Reason: Nausea And Vomiting Discharge Medication List Pnv No.95/Ferrous Fum/Folic AC [ Multivitamin Tablet] 1 each PO DAILY 03/04/21 [History] Aspirin 81 mg PO ONCE 05/10/21 [History] Ferrous Sulfate Drops [Orhan-in-Thao] 65 mg PO ONCE 05/10/21 [History] Labetalol [Trandate] 100 mg PO ONCE 05/10/21 [History] metFORMIN HCL 500 mg PO ONCE 05/10/21 [History] Ibuprofen [Motrin] 600 mg PO Q6HR PRN #30 tab 05/26/21 [Rx] Labetalol [Trandate] 200 mg PO BID 30 Days #60 tab 05/26/21 [Rx] Cephalexin [Keflex] 500 mg PO Q12HR 5 Days #10 cap 08/23/24 [Rx] Metoclopramide [Reglan] 10 mg PO BID PRN #10 tab 08/23/24 [Rx] Prochlorperazine 25 mg RECTAL BID PRN #24 suppositor 08/29/24 [Rx] Prochlorperazine [Compazine] 10 mg PO Q6H PRN #30 tab 08/29/24 [Rx] Follow up Appointment(s)/Referral(s): Didier Olivares MD [Primary Care Provider] - 1-2 days Patient Instructions/Handouts: Nausea and Vomiting in (ED) Discharge Disposition: HOME SELF-CARE
== END 2024-08-31 09:20 | disposition home or self-care (01) ==
LOC: EC 19:32 → 4FBP 21:59
PROVIDERS: ADMIT Obstetrics & Gynecology Obstetrics; ATTEND Obstetrics & Gynecology Obstetrics
DX: O21.1 Hyperemesis gravidarum with metabolic disturbance (principal); Z3A.09 9 weeks gestation of pregnancy; Z88.0 Allergy status to penicillin; Z88.2 Allergy status to sulfonamides
CPT/HCPCS: 96376; 96361 ×2; 96375; 96374; 99285; 36415; 80053 ×2; 85025 ×2; 81001; 87086; G0378 ×2; J2765 ×2; J2405 ×2

== ENCOUNTER 2024-11-15 19:12 | Outpatient (CLI) | payer MEDICAID, OTHER ==
[2024-11-15 20:02] VITALS: BP 117/59; PULSE 79; RESP 16; TEMP 97.5
--- NOTE | 2024-12-09 11:20 | P.MSEPDOC ---
Presenting Problems - Arrival Data Date of Arrival on Unit: 11/15/24 Time of Arrival on Unit: 19:12 Mode of Transport: Ambulatory - Complaint OB-Reason for Admission/Chief Complaint: PIH Comment: RIGOBERTO 20 weeks 1 day. presents with c/o Nas[place] and light headed and elevated pressure at home. No other complaints. BPs are 141/63, 125/58, 117/59. Pt takes zofran but is out of her script and thinks that is the reason for her nausea. Medical History - Information : 3 Para: 1 Term: 1 : 0 Abortions: Spontaneous or Elective: 1 Number of Living Children: 1 - Gestational Age Gestational Age by EMMANUEL (wks/days): 20 Weeks and 1 Days Review of Systems - Review of Systems Constitutional: No problems Breast: No problems ENT: No problems Cardiovascular: No problems Respiratory: No problems Gastrointestinal: No problems Genitourinary: No problems Musculoskeletal: No problems Neurological: No problems Skin: No problems Vital Signs - Temperature Temperature: 97.5 F Temperature Source: Temporal Artery Scan - Pulse Pulse Oximetery Pulse Rate: 79 Pulse Assessment Method: Pulse Oximetry - Respirations Respiratory Rate: 16 Oxygen Delivery Method: Room Air O2 Sat by Pulse Oximetry: 97 - Blood Pressure Right Arm Blood Pressure: 117/59 Blood Pressure Mean: 78 Blood Pressure Source: Automatic Cuff Physician Notification - Physician Notified Physician Notified Date: 11/15/24 Physician Notified Time: 19:40 Physician: Tiffany Rai Order Received: Yes - Notification Comment Comment: Dr. Worrell called. RIGOBERTO 20 weeks 1 day. presents with c/o Nas[place]a and light headed and elevated pressure at home. No other complaints. BPs are 141/63, 125/58, 117/59. Pt takes zofran but is out of her script and thinks that is the reason for her nausea. Order to d/c home Maternal Triage Index - Maternal Triage Index Presenting for scheduled procedure w/no complaint: No - Stat/Priority 1 Stat Priority 1: No - Urgent/Priority 2 Urgent Priority 2: Yes Provider Notified: Tiffany Provider Notified Time: 19:40 Criteria Met for Priority 2: Dr. Worerll called. RIGOBERTO 20 weeks 1 day. presents with c/o Nasuea and light headed and elevated pressure at home. No other complaints. BPs are 141/63, 125/58, 117/59. Pt takes zofran but is out of her script and thinks that is the reason for her nausea. Order to d/c home Disposition - Disposition OB Disposition: Discharge to home Discharge Date: 11/15/24 Discharge Time: 19:45 I agree with the RN Medical Screening Exam: Yes Physician's MSE Comment: I have neither seen nor examined the patient. Case reviewed; plan agreed upon as documented in EMR&OBIX.: Yes Diagnosis: RELATED CONDITIONS, UNSPECIFIED, SECOND TRIMESTER
== END 2024-11-15 19:45 | disposition home or self-care (01) ==
LOC: FBPOP 19:12
PROVIDERS: ATTEND Obstetrics & Gynecology
DX: O16.2 Unspecified maternal hypertension, second trimester (principal); Z3A.20 20 weeks gestation of pregnancy; Z88.0 Allergy status to penicillin; Z88.2 Allergy status to sulfonamides
CPT/HCPCS: 99213